=== PATIENT | male | born 1950 | race Caucasian/White ===

== ENCOUNTER → 2016-08-08 13:03 | Outpatient (CLI) | payer MEDICARE, OTHER ==
[2015-03-22 09:19] VITALS: BMI 30.8
== END | disposition home or self-care (01) ==
LOC: D.CT 08-07 11:00
DX: I73.9 Peripheral vascular disease, unspecified (principal); M79.605 Pain in left leg; M79.604 Pain in right leg

== ENCOUNTER 2017-03-31 09:40 | Day surgery (SDC) | payer MEDICARE, OTHER ==
[~2017-03-31] VITALS: Ht 167.6 cm; Wt 89.4 kg
[~2017-03-31 09:40] MED LIST: BAYER CHEWABLE81 MG PO; GLUCOPHAGE1000 MG PO; HYDROCHLOROTH12.5 M1 PO; LANTUS INSULIN10 ML SC; LISINOPRIL10 MG PO; NEURONTIN 300300 MG PO; NEURONTIN600 MG PO; RESTORIL15 MG PO; TYLENOL W/CODEI1 TAB PO
[2017-03-31 10:38] VITALS: BP 137/71; Ht 167.6 cm; Wt 89.4 kg
[2017-03-31 11:05] LABS: BASOPHILS 0.7 % (0-2); EOSINOPHILS 2.4 % (0-7); HEMATOCRIT 41.7 % (42.0-54.0); HEMOGLOBIN 14.1 g/dL (13.5-17.5); LYMPHOCYTES 40.4 % (15-50); MCH 29.9 pg (26.0-34.0); MCHC 33.8 g/dL (31.0-37.0); MCV 88.5 fL (80.0-100.0); MEAN PLATELET VOLUME 12.9 fL (7.4-10.4); MONOCYTES 12.5 % (2-11); RBC 4.71 10x6/uL (4.20-6.10); RDW 13.8 % (11.5-14.5)
[2017-03-31 11:07] LABS: PLATELET COUNT 122 10x3/uL (130-400)
[2017-03-31 11:27] LABS: CALC OSMOLALITY 279 mosm/kg (275-300); CALCIUM 9.1 mg/dL (8.5-10.1); CARBON DIOXIDE 26.4 mmol/L (21.0-32.0); CHLORIDE - SERUM 106 mmol/L (98-107); CREATININE - SERUM 0.6 mg/dL (0.6-1.3); SODIUM 139 mmol/L (136-145); UREA NITROGEN 16 mg/dL (7-18); eGFR NON AFRICAN AMERICAN > 90 mL/min (90-120)
[2017-03-31 11:28] LABS: GLUCOSE 113 mg/dL (74-106)
--- NOTE | 2017-03-31 15:20 | NUR ---
OPA IN AIRWAY ON ADMIT
[2017-03-31] MEDS ORDERED: HYDROCODONE-APA1 TAB PO (15:22)
--- NOTE | 2017-03-31 19:55 | NUR ---
CALL PLACED TO DR LY WHO IS TUB OPERATOR FOR DR BURGOS ABOUT PATIENT'S INABILITY TO VOID POSTOP. ORDER RECEIVED FOR INDWELLING [place] CATH AND DR LY STATES FOR PATIENT TO RETURN TO OFFICE THURSDAY TO HAVE IT REMOVED. 16 POLISH [place] CATH INSERTED WITHOUT DIFFICULTY, IMMEDIATE RETURN OF PATRICA COLORED URINE IN BAG
--- NOTE | 2017-03-31 20:25 | NUR ---
PATIENT AMBULATING TO BATHROOM WITH SPOUSE, STATES NEEDS TO HAVE BOWEL MOVEMENT. INSTRUCTED PATIENT TO NOT STRAIN, STATES UNDERSTANDING
--- NOTE | 2017-03-31 20:45 | NUR ---
DISCHARGE INSTRUCTIONS REVIEWED WITH PATIENT AND SPOUSE. PATIENT AMBULATING AROUND ROOM WITHOUT UNSTEADINESS BUT EXHIBITS STIFFNESS AND ASKING FOR SPOUSE'S ASSISTANCE WITH WALKING DUE TO PAIN IN RIGHT GROIN. THIS NURSE DISCUSSED WITH PATIENT'S SPOUSE HIS ABILITY TO GO HOME AND ASKED SPOUSE IF SHE FEELS CERTAIN THEY CAN FUNCTION AT HOME, SPOUSE STATES "YES, ONCE I GET HIM THERE AND GET HIM IN HIS RECLINER, THERE'S A BATHROOM REALLY CLOSE AND I THINK WE'LL BE OK." PATIENT DISCHARGED HOME VIA WHEELCHAIR TO PRIVATE VEHICLE WITH SPOUSE. PATIENT TRANSFERS SELF FROM WHEELCHAIR TO TRUCK WITH MINIMAL ASSIST.
--- NOTE | 2017-04-03 08:01 | OP ---
PATIENT NAME: KOLE BRANNON MEDICAL RECORD: [id number] :50 LOCATION:D.OPS ADMISSION DATE: SURGEON: AYDEN BURGOS MD DATE OF OPERATION: 03/31/2017 PREOPERATIVE DIAGNOSES: 1. Recurrent umbilical hernia. 2. Right inguinal hernia. 3. Tobacco dependent syndrome. 4. Hypertension. 5. Diabetes mellitus. 6. History of cerebrovascular accident. POSTOPERATIVE DIAGNOSES: 1. Recurrent umbilical hernia. 2. Right inguinal hernia. 3. Tobacco dependent syndrome. 4. Hypertension. 5. Diabetes mellitus. 6. History of cerebrovascular accident. PROCEDURE: 1. Umbilical hernia repair without mesh. 2. Right inguinal hernia repair with medium PHS mesh. SURGEON: Ayden Burgos MD REPORT OF PROCEDURE: The patient's abdomen and right groin were prepped and draped in sterile fashion. The umbilical hernia was approached first. A semicircular incision was made on the inferior aspect of the umbilicus. Electrocautery was used to dissect through the subcutaneous tissues. We eventually came through the inflamed hernia sac and was able to find about a 1-cm wide hernia defect. There is fatty tissue present within it and this was all teased down carefully with blunt dissection. The fascial edges were all freed off and the hernia defect was closed transversely with interrupted 0 Prolenes times 4. The umbilicus was then tacked down with an interrupted 3-0 Vicryl and the subcutaneous tissues were reapproximated with interrupted 3-0 Vicryl and the skin was then closed with running subcutaneous 5-0 Monocryl and dressed appropriately. The patient's right groin was then approached. An oblique incision was made above the inguinal ligament. Electrocautery was used to dissect through the subcutaneous tissue down to the external oblique fascia. This fascia was opened up to the external ring using Metzenbaum scissors. The patient's spermatic cord was elevated and there is a large fluid containing hernia defect present, we eviscerated the patient's right testicle and eventually peeled the hernia defect off of the spermatic cord and the ilioinguinal nerve was found and high ligated. We then pushed this direct hernia sac back into the abdominal cavity and opened up the preperitoneal space of Retzius. A medium PHS mesh was inserted and sutured down on all 4 sides using interrupted 0 Vicryls. After we irrigated out the wound with normal saline, then the external oblique fascia was closed with running 2-0 Vicryl, Susan's was closed with interrupted 3-0 Vicryl, and the skin was closed with running subcutaneous 5-0 Monocryl. A total of 10 mL of 0.25% Marcaine with epinephrine was infused in the tissue surrounding the 2 incisions, and wounds were dressed appropriately. OPERATIVE REPORT [id number] KOLE BRANNON COMPLICATIONS: None. CONDITION: Stable. ANESTHESIA: General endotracheal and local. BLOOD LOSS: Minimal. TRANSINT:[id number] Voice Confirmation ID: [id number] DOCUMENT ID: [id number] AYDEN BURGOS MD at 0801 CC: [place] DO [id number] DICTATION DATE: 03/31/17 1528 SECURITY FLEX OFFICER: 03/31/17 1757 [facility] 03/31/17 [address] [place] [address]
== END 2017-03-31 20:45 | disposition home or self-care (01) ==
LOC: D.OPS 09:40 → D.PAN 11:25 → D.OPS 12:00 → D.PAN 12:00 → D.OPS 15:00 → D.PAN 04-02 09:15
PROVIDERS: Surgery
DX: K42.9 Umbilical hernia without obstruction or gangrene (principal); K40.90 Unilateral inguinal hernia, without obstruction or gangrene, not specified as recurrent; F17.200 Nicotine dependence, unspecified, uncomplicated; I10 Essential (primary) hypertension; E11.9 Type 2 diabetes mellitus without complications; Z86.73 Personal history of transient ischemic attack (TIA), and cerebral infarction without residual deficits; Z01.812 Encounter for preprocedural laboratory examination

== ENCOUNTER → 2017-09-16 09:39 | Outpatient (CLI) | payer MEDICARE, OTHER ==
[2017-03-31 10:38] VITALS: BMI 31.8
[~2017-09-16 09:39] MED LIST changes: +HYDROCODONE-APA1 TAB PO
== END | disposition home or self-care (01) ==
LOC: D.US 09-15 13:00 → D.CT 09-15 15:30 → D.US 09:39
DX: G45.9 Transient cerebral ischemic attack, unspecified (principal)

== ENCOUNTER → 2017-10-29 15:30 | Outpatient (CLI) | payer MEDICARE, OTHER ==
[2017-03-31 10:38] VITALS: BMI 31.8
[~2017-10-29 15:30] MED LIST changes: +ALDACTONE100 MG PO; +CHRONULAC30 ML PO; +FUROSEMIDE40 MG PO; +TRAZODONE HCL150 MG PO; +XIFAXAN200 MG PO
== END | disposition home or self-care (01) ==
LOC: D.CT 15:00 → D.MRI 15:30 → D.CT 15:30 → D.MRI 16:00 → D.CT 16:30
DX: R10.31 Right lower quadrant pain (principal)

== ENCOUNTER 2017-11-12 10:11 | Outpatient (CLI) | payer MEDICARE, OTHER ==
[~2017-11-12] VITALS: Ht 167.6 cm; Wt 88.2 kg
[~2017-11-12 10:11] MED LIST changes: -ALDACTONE100 MG PO; -CHRONULAC30 ML PO; -FUROSEMIDE40 MG PO; -TRAZODONE HCL150 MG PO; -XIFAXAN200 MG PO
[2017-11-12 10:32] LABS: HEMATOCRIT 40.8 % (42.0-54.0); HEMOGLOBIN 13.5 g/dL (13.5-17.5); MCH 28.9 pg (26.0-34.0); MCHC 33.1 g/dL (31.0-37.0); MCV 87.4 fL (80.0-100.0); MEAN PLATELET VOLUME 9.9 fL (7.4-10.4); RBC 4.67 10x6/uL (4.20-6.10); RDW 14.1 % (11.5-14.5); WBC 2.6 10x3/uL (4.8-10.8)
[2017-11-12 10:49] LABS: APTT 29.7 SECONDS (22.8-39.4); INR 1.27 (0.85-1.17); PROTIME 15.5 SECONDS (11.6-15.0)
[2017-11-12 10:51] LABS: PLATELET COUNT 62 10x3/uL (130-400)
[2017-11-12 10:55] LABS: ALBUMIN 3.3 g/dL (3.4-5.0); CALC OSMOLALITY 286 mosm/kg (275-300); CALCIUM 8.5 mg/dL (8.5-10.1); CARBON DIOXIDE 30.7 mmol/L (21.0-32.0); CHLORIDE - SERUM 106 mmol/L (98-107); CREATININE - SERUM 0.8 mg/dL (0.6-1.3); GLUCOSE 113 mg/dL (74-106); POTASSIUM - SERUM 4.2 mmol/L (3.5-5.1); SODIUM 143 mmol/L (136-145); UREA NITROGEN 14 mg/dL (7-18); eGFR NON AFRICAN AMERICAN > 90 mL/min (90-120)
[2017-11-12 11:22] LABS: EOSINOPHILS 2 % (0-7); LYMPHOCYTES 36 % (15-50); MONOCYTES 11 % (2-11); NEUTROPHILS 50 % (40-80); PLATELET ESTIMATE DECREASED
[2017-11-12 12:05] VITALS: Ht 167.6 cm; Wt 88.2 kg
== END 2017-11-12 17:15 | disposition home or self-care (01) ==
LOC: D.SP 10:11 → D.CT 10:11 → D.SP 17:15
PROVIDERS: Radiology Vascular & Interventional Radiology
DX: K74.60 Unspecified cirrhosis of liver (principal)

== ENCOUNTER 2017-11-25 05:29 | Day surgery (SDC) | payer MEDICARE, OTHER ==
[~2017-11-25] VITALS: Ht 167.6 cm; Wt 88.2 kg
--- NOTE | ~2017-11-25 | OP ---
PATIENT NAME: KOLE BRANNON MEDICAL RECORD: [id number] :50 LOCATION:[facility] ADMISSION DATE: SURGEON: POONAM PACE DO DATE OF OPERATION: 11/25/2017 PROCEDURE: EGD with biopsies and variceal banding. INDICATIONS FOR PROCEDURE: Cirrhosis of the liver and surveillance of esophageal varices. SCOPE: Olympus video gastroscope. MEDICATIONS: Propofol 200 mg IV per anesthesia. ESTIMATED BLOOD LOSS: Minimal. COMPLICATIONS: None. FINDINGS: Informed consent was given. The patient was made comfortable with the above medication. After reaching an adequate level of sedation by slow IV push, the patient was placed on his left side. The endoscope was advanced under direct visualization through the mouth to the second portion of the duodenum. The upper third of the esophagus appeared normal. In the middle and distal thirds of the esophagus, there were large, grade III to grade IV esophageal varices, without bleeding stigmata. For prevention of bleeding, three bands were placed in the distal esophagus successfully. At the GE junction, there was evidence of LA class B reflux induced esophagitis and possible Daniels esophagus. No biopsies were taken on today's date due to the patient's elevated INR and low platelet level. The endoscope was advanced beyond the GE junction into the stomach and retroflexed to view the cardia, which appeared normal. In the entire stomach, there was diffuse portal hypertensive gastropathy and areas of erythema and friability consistent with gastritis. A single biopsy was taken from the incisura to submit for histopathology and to rule out the presence of H. pylori. The endoscope was advanced beyond the pylorus into the duodenum where the bulb and second portion of the duodenum appeared normal. The endoscope was then withdrawn from the patient. The patient tolerated the procedure well and there were no immediate complications. IMPRESSION: 1. Grade III to grade IV esophageal varices banded times 3. 2. 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 3. Portal hypertensive gastropathy. 4. Gastritis. PLAN AND RECOMMENDATIONS: 1. Discharge home when recovery parameters are met. 2. Follow up biopsy specimen results. 3. Full liquid diet for 24 hours followed by soft diet times 48 hours, then a regular diet. 4. Repeat EGD in 4 weeks for continued banding of varices as indicated until eradicated. 5. If not already taking a PPI, we will start 1 at 40 mg equivalent daily regarding possible Daniels's and the banded varices. TRANSINT:[id number] Voice Confirmation ID: [id number] DOCUMENT ID: [id number] OPERATIVE REPORT [id number] KOLE BRANNON NATHAN A DO at 0739 CC: [id number] DICTATION DATE: 11/25/17 0833 MANAGER HVAC: 11/25/17 1153 [facility] 11/25/17 [id number] [place] [address]
[2017-11-25 05:49] LABS: HEMATOCRIT 40.3 % (42.0-54.0); HEMOGLOBIN 13.5 g/dL (13.5-17.5); MCHC 33.5 g/dL (31.0-37.0); MCV 86.7 fL (80.0-100.0); MEAN PLATELET VOLUME 9.9 fL (7.4-10.4); RBC 4.65 10x6/uL (4.20-6.10); RDW 13.9 % (11.5-14.5); WBC 3.7 10x3/uL (4.8-10.8)
[2017-11-25] MEDS ORDERED: LISINOPRIL10 MG PO (06:26)
[2017-11-25] MEDS ORDERED: FUROSEMIDE40 MG PO (06:27)
[2017-11-25] MEDS ORDERED: ALDACTONE100 MG PO (06:27)
[2017-11-25 06:29] VITALS: BP 113/69; Ht 167.6 cm; Wt 88.2 kg
[2017-11-25 07:05] LABS: APTT 29.1 SECONDS (22.8-39.4); INR 1.27 (0.85-1.17); PROTIME 15.4 SECONDS (11.6-15.0)
== END 2017-11-25 09:45 | disposition home or self-care (01) ==
LOC: D.OPS 05:29
PROVIDERS: Anesthesiology; Internal Medicine Gastroenterology
DX: K74.60 Unspecified cirrhosis of liver (principal); I85.10 Secondary esophageal varices without bleeding; K21.0 Gastro-esophageal reflux disease with esophagitis; K76.6 Portal hypertension; K31.89 Other diseases of stomach and duodenum; K29.70 Gastritis, unspecified, without bleeding; Z01.812 Encounter for preprocedural laboratory examination

== ENCOUNTER 2017-12-16 06:37 | Outpatient (CLI) | payer MEDICARE, OTHER ==
[~2017-12-16] VITALS: Ht 167.6 cm; Wt 80.9 kg
[~2017-12-16 06:37] MED LIST changes: +ALDACTONE100 MG PO; +FUROSEMIDE40 MG PO
[2017-12-16 06:56] LABS: EOSINOPHILS 3.4 % (0-7); HEMATOCRIT 40.3 % (42.0-54.0); HEMOGLOBIN 13.6 g/dL (13.5-17.5); IMMATURE GRANULOCYTES 0.3 % (0-5); LYMPHOCYTES 36.9 % (15-50); MCH 28.9 pg (26.0-34.0); MCHC 33.7 g/dL (31.0-37.0); MCV 85.7 fL (80.0-100.0); MEAN PLATELET VOLUME 10.1 fL (7.4-10.4); MONOCYTES 10.9 % (2-11); NEUTROPHILS 47.5 % (40-80); PLATELET COUNT 62 10x3/uL (130-400); RDW 13.7 % (11.5-14.5); WBC 2.9 10x3/uL (4.8-10.8)
[2017-12-16 07:04] LABS: CALCIUM 8.5 mg/dL (8.5-10.1); CARBON DIOXIDE 29.9 mmol/L (21.0-32.0); CREATININE - SERUM 1.1 mg/dL (0.6-1.3); POTASSIUM - SERUM 3.9 mmol/L (3.5-5.1)
[2017-12-16 07:06] LABS: APTT 26.5 SECONDS (22.8-39.4); INR 1.19 (0.85-1.17); PROTIME 14.7 SECONDS (11.6-15.0)
[2017-12-16] MEDS ORDERED: TRAZODONE HCL150 MG PO (08:47)
[2017-12-16] MEDS ORDERED: XIFAXAN200 MG PO (08:52)
[2017-12-16] MEDS ORDERED: CHRONULAC30 ML PO (08:53)
[2017-12-16 09:12] VITALS: BP 103/67; Ht 167.6 cm; Wt 80.9 kg
== END 2017-12-16 14:38 | disposition home or self-care (01) ==
LOC: D.SP 06:37 → D.CT 09:00 → D.SP 14:38
PROVIDERS: Radiology Vascular & Interventional Radiology
DX: D69.6 Thrombocytopenia, unspecified (principal); Z01.812 Encounter for preprocedural laboratory examination

== ENCOUNTER 2018-01-20 05:35 | Day surgery (SDC) | payer MEDICARE, OTHER ==
[~2018-01-20] VITALS: Ht 167.6 cm; Wt 82.3 kg
--- NOTE | ~2018-01-20 | OP ---
PATIENT NAME: KOLE BRANNON MEDICAL RECORD: [id number] :50 LOCATION:[facility] ADMISSION DATE: SURGEON: POONAM PACE DO DATE OF OPERATION: 01/20/2018 PROCEDURE: EGD with esophageal variceal banding. INDICATION FOR PROCEDURE: Cirrhosis with history of esophageal varices and banding, last performed on 11/25/2017. SCOPE: Olympus video gastroscope. MEDICATIONS: Propofol 350 mg IV per anesthesia. ESTIMATED BLOOD LOSS: Minimal. COMPLICATIONS: None. FINDINGS: Informed consent was given. The patient was made comfortable with the above medication. After reaching an adequate level of sedation by slow IV push, the patient was placed on his left side. The endoscope was advanced under direct visualization through the mouth down to the second portion of the duodenum with ease. Throughout the entire esophagus, there were grade III to grade IV esophageal varices with some spot stigmata including warren red spots. There were no ulcers and no active bleeding. At the GE junction, there was evidence of LA class C reflux-induced esophagitis. The endoscope was advanced beyond the GE junction into the stomach where diffuse portal hypertensive gastropathy was displayed. There were no obvious gastric varices identified. In antrum and prepyloric regions, there were some reactive nodules with some ulcers present. There was no active bleeding. The endoscope was advanced beyond the pylorus into the duodenum where the bulb and second portion of the duodenum appeared normal. The endoscope was then withdrawn from the patient and the [employer] Speedband 7 was placed over the cap of the endoscope. The endoscope was advanced back into the esophagus where 4 bands were placed over the largest esophageal varices and where spot stigmata were located and visualized. The endoscope was then withdrawn from the patient. The patient tolerated the procedure well and there were no complications. IMPRESSION: 1. Grade III to IV esophageal varices, status post banding times 4. 2. LA class C reflux-induced esophagitis. 3. Diffuse portal hypertensive gastropathy. 4. Reactive nodules within the antrum of the stomach with gastric ulcers present. PLAN AND RECOMMENDATIONS: 1. Discharge home when recovery parameters are met. 2. Diet will need to be changed to a full-liquid diet times 48 hours followed by soft diet times 48 hours followed by regular diet. 3. Continue current medications. 4. Add omeprazole 40 mg daily or equivalent PPI until next endoscopy. 5. Repeat endoscopy in approximately 4 weeks for repeat banding as indicated. TRANSINT:[id number] Voice Confirmation ID: [id number] DOCUMENT ID: [id number] OPERATIVE REPORT [id number] KOLE BRANNON NATHAN A DO at 1312 CC: [id number] DICTATION DATE: 01/20/18827 HUMAN RESOURCES PROJECT COORDINATOR: 01/20/[address] [facility] 01/20/18 [id number] [place] [address]
[~2018-01-20 05:35] MED LIST changes: +CHRONULAC30 ML PO; +TRAZODONE HCL150 MG PO; +XIFAXAN200 MG PO
[2018-01-20 05:52] LABS: BASOPHILS 0.6 % (0-2); EOSINOPHILS 2.3 % (0-7); HEMATOCRIT 38.5 % (42.0-54.0); HEMOGLOBIN 13.1 g/dL (13.5-17.5); LYMPHOCYTES 39.3 % (15-50); MCH 29.5 pg (26.0-34.0); MCV 86.7 fL (80.0-100.0); MEAN PLATELET VOLUME 10.1 fL (7.4-10.4); MONOCYTES 8.4 % (2-11); NEUTROPHILS 49.4 % (40-80); PLATELET COUNT 60 10x3/uL (130-400); RBC 4.44 10x6/uL (4.20-6.10); RDW 14.5 % (11.5-14.5); WBC 3.1 10x3/uL (4.8-10.8)
[2018-01-20 06:07] LABS: ANION GAP 11.4 mmol/L (8-16); CARBON DIOXIDE 28.9 mmol/L (21.0-32.0); CREATININE - SERUM 1.1 mg/dL (0.6-1.3); POTASSIUM - SERUM 4.3 mmol/L (3.5-5.1)
[2018-01-20 06:14] LABS: INR 1.2 (0.85-1.17); PROTIME 14.7 SECONDS (11.6-15.0)
[2018-01-20 06:15] LABS: APTT 28.7 SECONDS (22.8-39.4)
[2018-01-20 06:16] VITALS: Ht 167.6 cm; Wt 82.3 kg
== END 2018-01-20 09:40 | disposition home or self-care (01) ==
LOC: D.OPS 05:35
PROVIDERS: Anesthesiology; Internal Medicine Gastroenterology
DX: K74.60 Unspecified cirrhosis of liver (principal); I85.10 Secondary esophageal varices without bleeding; K21.0 Gastro-esophageal reflux disease with esophagitis; K76.6 Portal hypertension; K31.89 Other diseases of stomach and duodenum; K25.9 Gastric ulcer, unspecified as acute or chronic, without hemorrhage or perforation; Z01.812 Encounter for preprocedural laboratory examination

== ENCOUNTER 2018-03-17 05:12 | Day surgery (SDC) | payer MEDICARE, OTHER ==
[~2018-03-17] VITALS: Ht 167.6 cm; Wt 82.7 kg
--- NOTE | ~2018-03-17 | OP ---
PATIENT NAME: KOLE BRANNON MEDICAL RECORD: [id number] :50 LOCATION:D.OPS ADMISSION DATE: SURGEON: POONAM PACE DO DATE OF OPERATION: 03/17/2018 PROCEDURE: Colonoscopy with polypectomy. INDICATIONS FOR PROCEDURE: Screening for colorectal cancer. SCOPE: Olympus video pediatric colonoscope. MEDICATIONS: Propofol 600 mg IV per anesthesia. WITHDRAWAL TIME: 19 minutes. ESTIMATED BLOOD LOSS: Minimal. COMPLICATIONS: None. FINDINGS: Informed consent was given. The patient was made comfortable with the above medication. After reaching an adequate level of sedation by slow IV push, the patient was placed on his left side. A digital rectal examination was performed and was normal. The endoscope was then advanced under direct visualization through the rectum to the cecum, confirmed by the presence of the appendiceal orifice and ileocecal valve. The endoscope was slowly withdrawn. Mucosa was carefully examined. The prep quality was good. There were multiple polyps visualized on today's examination. They were all benign-appearing and sessile. They ranged in size from 2-4 mm in diameter. One was located in the ascending colon, one was located in the transverse colon, one was located in the sigmoid colon, and 4 were located in the rectum. All of these polyps were removed using hot forceps. Retroflexion was performed in the rectum with visualization of grade II internal hemorrhoids without active bleeding. The endoscope was then withdrawn from the patient. The patient tolerated the procedure well and there were no complications. IMPRESSION: 1. Multiple polyps as described above, removed using hot forceps. 2. Grade II internal hemorrhoids without bleeding. PLAN AND RECOMMENDATIONS: 1. Discharge home when recovery parameters are met. 2. Follow up biopsy specimen results. 3. High fiber diet. 4. Continue current medications. 5. Recall colonoscopy in 3 years. TRANSINT:[id number] Voice Confirmation ID: [id number] DOCUMENT ID: [id number] OPERATIVE REPORT [id number] KOLE BRANNON POONAM PACE DO at 0732 CC: [id number] DICTATION DATE: 03/17/18 08 PRIVATE PILOT: 03/17/18 1143 [facility] 03/17/18 [place] [address]
[2018-03-17 05:27] LABS: HEMATOCRIT 38.7 % (42.0-54.0); HEMOGLOBIN 13.1 g/dL (13.5-17.5); MCHC 33.9 g/dL (31.0-37.0); MCV 88.8 fL (80.0-100.0); RBC 4.36 10x6/uL (4.20-6.10); RDW 13.6 % (11.5-14.5); WBC 3.9 10x3/uL (4.8-10.8)
[2018-03-17 05:35] LABS: CALC OSMOLALITY 280 mosm/kg (275-300); CALCIUM 8.7 mg/dL (8.5-10.1); CARBON DIOXIDE 27.9 mmol/L (21.0-32.0); CHLORIDE - SERUM 102 mmol/L (98-107); SODIUM 140 mmol/L (136-145); UREA NITROGEN 15 mg/dL (7-18); eGFR NON AFRICAN AMERICAN 79 mL/min (90-120)
[2018-03-17 05:40] LABS: GLUCOSE 111 mg/dL (74-106)
[2018-03-17 06:21] VITALS: BP 134/72; Ht 167.6 cm; Wt 82.7 kg
== END 2018-03-17 09:05 | disposition home or self-care (01) ==
LOC: D.OPS 05:12
PROVIDERS: Anesthesiology
DX: D12.2 Benign neoplasm of ascending colon (principal); D12.5 Benign neoplasm of sigmoid colon; D12.3 Benign neoplasm of transverse colon; K62.1 Rectal polyp; K64.1 Second degree hemorrhoids

== ENCOUNTER 2018-05-03 08:47 | Day surgery (SDC) | payer MEDICARE, OTHER ==
[~2018-05-03] VITALS: Ht 167.6 cm; Wt 80.5 kg
[2018-05-03 09:18] LABS: BASOPHILS 0.2 % (0-2); EOSINOPHILS 1.6 % (0-7); HEMATOCRIT 39.7 % (42.0-54.0); HEMOGLOBIN 13.7 g/dL (13.5-17.5); IMMATURE GRANULOCYTES 0.2 % (0-5); MCH 30.3 pg (26.0-34.0); MCHC 34.5 g/dL (31.0-37.0); MCV 87.8 fL (80.0-100.0); MEAN PLATELET VOLUME 10.7 fL (7.4-10.4); MONOCYTES 8.3 % (2-11); NEUTROPHILS 75.7 % (40-80); PLATELET COUNT 62 10x3/uL (130-400); RBC 4.52 10x6/uL (4.20-6.10); RDW 13.4 % (11.5-14.5); WBC 8.9 10x3/uL (4.8-10.8)
[2018-05-03 09:31] LABS: ALBUMIN 3.5 g/dL (3.4-5.0); ANION GAP 14.2 mmol/L (8-16); BILIRUBIN - TOTAL 2.57 mg/dL (0.2-1.3); CALCIUM 8.7 mg/dL (8.5-10.1); CREATININE - SERUM 1.4 mg/dL (0.6-1.3); POTASSIUM - SERUM 4.2 mmol/L (3.5-5.1); PROTEIN - SERUM 7.5 g/dL (6.4-8.2)
[2018-05-03 09:41] VITALS: BP 104/54; Ht 167.6 cm; Wt 80.5 kg
--- NOTE | 2018-05-03 09:50 | NUR ---
IV STARTED WITH; 22G ANGIOCATH IN RIGHT ARM
[2018-05-03 10:37] LABS: PLATELET ESTIMATE DECREASED
[2018-05-03 10:42] LABS: INR 1.14 (0.85-1.17); PROTIME 14.1 SECONDS (11.6-15.0)
--- NOTE | 2018-05-05 13:50 | OP ---
PATIENT NAME: KOLE BRANNON MEDICAL RECORD: [id number] :50 LOCATION:[facility] ADMISSION DATE: SURGEON: POONAM PACE DO DATE OF OPERATION: 05/03/2018 PROCEDURE: EGD with variceal band ligation and biopsies. INDICATION FOR PROCEDURE: History of cirrhosis with esophageal varices, requiring banding in the past. Last EGD with banding was performed on 01/20/2018. SCOPE: Olympus video gastroscope. MEDICATIONS: Propofol 250 mg IV per anesthesia. ESTIMATED BLOOD LOSS: Minimal. COMPLICATIONS: None. FINDINGS: Informed consent was given. The patient was made comfortable with the above medication. After reaching an adequate level of sedation by slow IV push, the patient was placed on his left side. The endoscope was advanced under direct visualization through the mouth to the second portion of the duodenum with ease. In the esophagus, there was evidence of grade II to grade III esophageal varices. Varices were more severe in the proximal to middle thirds of the esophagus as opposed to the distal third. There were some previous banding scars present. There were few warren red spots and red john signs present on varices. After the rest of the examination was performed, a Speedbander was placed over the endoscope and 3 bands were placed over the most prominent varices present. At the GE junction, there was evidence of LA class C, reflux-induced esophagitis with possible Daniels's mucosa. Two cold forceps biopsies were taken to submit for histology to rule out the presence of Daniels's. The endoscope was advanced beyond the GE junction into the stomach and retroflexed to view the cardia and fundus. There were no obvious gastric varices present. Throughout the stomach, there was evidence of pqmruofw-wj-jrghid portal hypertensive gastropathy. There was no active bleeding. In the antrum, there were some reactive nodules which were present on previous examinations. No biopsies were taken of the antrum on today's examination. The endoscope was advanced beyond the pylorus into the duodenum, where there was evidence of mild portal hypertensive duodenopathy but was otherwise normal. The endoscope was withdrawn from the patient after banding was completed. The patient tolerated the procedure well. There were no complications. IMPRESSION: 1. Grade III esophageal varices, banded times 3. 2. LA class C, reflux-induced esophagitis with possible Daniels's mucosa. Biopsies taken. 3. Ahyupzon-kv-cqmtbl portal hypertensive gastropathy and mild portal hypertensive duodenopathy. 4. Reactive nodules in the antrum, which were not biopsied on today's examination, but had been biopsied in the past. PLAN AND RECOMMENDATIONS: 1. Discharge home when recovery parameters are met. OPERATIVE REPORT [id number] KOLE BRANNON 2. Liquid diet times 48 hours followed by soft diet times 48 hours and then regular diet. 3. Continue current medications. 4. Maintain appointments with can dragger as scheduled. 5. Recommend repeat EGD in 3-4 weeks with banding as indicated. TRANSINT:[id number] Voice Confirmation ID: [id number] DOCUMENT ID: [id number] POONAM PACE DO at 1350 CC: [id number] DICTATION DATE: 05/03/18 1045 MUSEUM DIRECTOR: 05/03/18 1159 [facility] 05/03/18 [facility] [address] [place] [address]
== END 2018-05-03 12:16 | disposition home or self-care (01) ==
LOC: D.OPS 08:47
PROVIDERS: Anesthesiology; Internal Medicine Gastroenterology
DX: I85.10 Secondary esophageal varices without bleeding (principal); K74.60 Unspecified cirrhosis of liver; K21.0 Gastro-esophageal reflux disease with esophagitis; K76.6 Portal hypertension; K31.89 Other diseases of stomach and duodenum; Z01.812 Encounter for preprocedural laboratory examination

== ENCOUNTER → 2018-05-26 13:59 | Outpatient (CLI) | payer MEDICARE, OTHER ==
[2018-05-03 09:41] VITALS: BMI 28.6
== END | disposition home or self-care (01) ==
LOC: D.CT 05-19 09:30
DX: R10.30 Lower abdominal pain, unspecified (principal)

== ENCOUNTER 2018-06-16 09:47 | Day surgery (SDC) | payer MEDICARE, OTHER ==
[~2018-06-16] VITALS: Ht 167.6 cm; Wt 83.2 kg
--- NOTE | ~2018-06-16 | OP ---
PATIENT NAME: KOLE BRANNON MEDICAL RECORD: [id number] :50 LOCATION:[facility] ADMISSION DATE: SURGEON: POONAM PACE DO DATE OF OPERATION: 06/16/2018 PROCEDURE: EGD with band ligation. INDICATIONS FOR PROCEDURE: Esophageal varices surveillance. His last EGD was on 05/03/2018 and 3 bands were placed at that time. SCOPE: Olympus video gastroscope. MEDICATIONS: Propofol 180 mg IV per anesthesia. ESTIMATED BLOOD LOSS: Minimal. COMPLICATIONS: None. FINDINGS: Informed consent was given. The patient was made comfortable with the above medication. After reaching an adequate level of sedation by slow IV push, the patient was placed on his left side. The endoscope was advanced under direct visualization through the mouth to the second portion of the duodenum with ease. In the esophagus, there was evidence of grade II to grade III esophageal varices. As they were in the past, varices were more severe in the proximal to middle thirds of the esophagus. There were some varices in the distal esophagus. Previous banding scars were present. There were a few warren red spots and red ori present on the varices today. After the remainder of the examination was performed, a speed smoking tobacco packing machine hand was placed over the endoscope and 3 bands were placed over the most prominent varices present. At the GE junction, there was evidence of LA class C, reflux-induced esophagitis. The endoscope was advanced beyond the GE junction, the stomach and retroflexed to view the cardia and fundus. There were no obvious gastric varices present. Throughout the stomach, there was jafidxgx-dm-vdjdku portal hypertensive gastropathy without active bleeding. In the antrum, there were a few reactive nodules/polyps, which were present on previous examinations. These have been biopsied in the past and will have been found to be benign, so no biopsies were performed today. The endoscope was advanced beyond the pylorus into the duodenum where there was evidence of mild portal hypertensive duodenopathy. The endoscope was then withdrawn from the patient. The patient tolerated the procedure well and there were no complications. IMPRESSION: 1. Grade II to grade III esophageal varices banded times 3. 2. LA class C, reflux-induced esophagitis. 3. Uunmetbf-vp-ytkhec portal hypertensive gastropathy and duodenopathy. 4. Reactive nodules/polyps in the antrum, which were not biopsied on today's examination. These have been biopsied in the past and had been found to be benign. TRANSINT:[id number] Voice Confirmation ID: [id number] DOCUMENT ID: [id number] OPERATIVE REPORT [id number] KOLE BRANNONPOONAM Victoria NUGENT CC: [id number] DICTATION DATE: 06/16/18 1232 DRYING MACHINE OPERATOR: 06/16/18 1256 [facility] [address] [place] [address]
[2018-06-16 10:22] LABS: HEMATOCRIT 39.6 % (42.0-54.0); HEMOGLOBIN 13.6 g/dL (13.5-17.5); MCH 30.3 pg (26.0-34.0); MCHC 34.3 g/dL (31.0-37.0); MCV 88.2 fL (80.0-100.0); MEAN PLATELET VOLUME 10.8 fL (7.4-10.4); RBC 4.49 10x6/uL (4.20-6.10); RDW 13.7 % (11.5-14.5); WBC 3.6 10x3/uL (4.8-10.8)
[2018-06-16 10:25] LABS: APTT 28.2 SECONDS (22.8-39.4); INR 1.23 (0.85-1.17)
[2018-06-16] MEDS ORDERED: FLAGYL500 MG PO (10:29)
[2018-06-16 10:34] LABS: ALBUMIN 3.8 g/dL (3.4-5.0); ANION GAP 13.3 mmol/L (8-16); BILIRUBIN - TOTAL 1.26 mg/dL (0.2-1.3); CALCIUM 8.8 mg/dL (8.5-10.1); CARBON DIOXIDE 25.4 mmol/L (21.0-32.0); CREATININE - SERUM 1.3 mg/dL (0.6-1.3); POTASSIUM - SERUM 5.7 mmol/L (3.5-5.1); PROTEIN - SERUM 7.2 g/dL (6.4-8.2)
[2018-06-16 10:42] VITALS: BP 112/70; Ht 167.6 cm; Wt 83.2 kg
--- NOTE | 2018-06-16 13:02 | NUR ---
DC INSTRUCTIONS GIVEN TO PT/FAMILY. STATE UNDERSTANDING. DC'D IV CATH FULLY INTACT
--- NOTE | 2018-06-16 13:12 | NUR ---
PT LEFT UNIT VIA WC AT 1309
== END 2018-06-16 13:09 | disposition home or self-care (01) ==
LOC: D.OPS 09:47
PROVIDERS: Anesthesiology; ATTEND Internal Medicine Gastroenterology
DX: I85.00 Esophageal varices without bleeding (principal); K21.0 Gastro-esophageal reflux disease with esophagitis; K76.6 Portal hypertension; K31.89 Other diseases of stomach and duodenum; K31.7 Polyp of stomach and duodenum; Z01.812 Encounter for preprocedural laboratory examination

== ENCOUNTER 2018-07-26 12:14 | Day surgery (SDC) | payer MEDICARE, OTHER ==
[~2018-07-26] VITALS: Ht 165.1 cm; Wt 82.7 kg
[~2018-07-26 12:14] MED LIST changes: +FLAGYL500 MG PO
[2018-07-26 12:45] LABS: BASOPHILS 0.3 % (0-2); EOSINOPHILS 2.9 % (0-7); HEMATOCRIT 37.5 % (42.0-54.0); HEMOGLOBIN 12.9 g/dL (13.5-17.5); IMMATURE GRANULOCYTES 0.3 % (0-5); LYMPHOCYTES 29.4 % (15-50); MCH 30.9 pg (26.0-34.0); MCHC 34.4 g/dL (31.0-37.0); MCV 89.7 fL (80.0-100.0); MONOCYTES 12.5 % (2-11); NEUTROPHILS 54.6 % (40-80); RBC 4.18 10x6/uL (4.20-6.10); RDW 13.3 % (11.5-14.5); WBC 3.8 10x3/uL (4.8-10.8)
[2018-07-26 12:55] LABS: ANION GAP 11.5 mmol/L (8-16); CALCIUM 8.8 mg/dL (8.5-10.1); CARBON DIOXIDE 28.3 mmol/L (21.0-32.0); CREATININE - SERUM 1.6 mg/dL (0.6-1.3); POTASSIUM - SERUM 4.8 mmol/L (3.5-5.1)
[2018-07-26 12:59] LABS: PLATELET COUNT 48 10x3/uL (130-400)
--- NOTE | 2018-07-26 13:05 | NUR ---
DR. PACE WAS NOTIFIED OF PT'S PLT COUNT OF 48. HE WANTS TO PROCEED W/ PROCEDURE.
[2018-07-26] MEDS ORDERED: GLYBURIDE2.5 MG PO (13:16)
[2018-07-26] MEDS ORDERED: CHRONULAC30 ML PO (13:17)
[2018-07-26] MEDS ORDERED: PROTONIX40 MG PO (13:17)
[2018-07-26 13:20] VITALS: Ht 165.1 cm; Wt 82.7 kg
[2018-07-26 13:28] LABS: PLATELET ESTIMATE DECREASED
--- NOTE | 2018-07-26 14:27 | NUR ---
1428 DR. KATELYNN WHITTEN.
--- NOTE | 2018-07-26 14:41 | NUR ---
1440 [place] DIET SERVED. ORDERS FAXED TO OFFICE FOR FOLLOW UP EGD TO BE SCHEDULED.
--- NOTE | 2018-07-28 18:24 | OP ---
PATIENT NAME: KOLE BRANNON MEDICAL RECORD: [id number] :50 LOCATION:[facility] ADMISSION DATE: SURGEON: POONAM PACE DO DATE OF OPERATION: 07/26/2018 PROCEDURE: EGD with band ligation. INDICATIONS FOR PROCEDURE: Surveillance of esophageal varices. The patient's last upper endoscopy was on 06/16/2018 where 3 bands were placed. SCOPE: Olympus video gastroscope. MEDICATIONS: Propofol 160 mg IV per anesthesia. ESTIMATED BLOOD LOSS: Minimal. COMPLICATIONS: None. FINDINGS: Informed consent was given. The patient was made comfortable with the above medication. After reaching an adequate level of sedation by slow IV push, the patient was placed on his left side. The endoscope was advanced under direct visualization through the mouth to the second portion of the duodenum. In the esophagus, there was evidence of grade II to grade III esophageal varices. As noted in the past, the varices were most severe in the proximal to middle thirds of the esophagus with relative sparing of the mid esophagus and again worsening of the varices in the distal esophagus. There were a few red welts present on the varices today. At the GE junction, there was evidence of LA class C reflux-induced esophagitis. There was moderately severe portal hypertensive gastropathy and duodenopathy on this examination. There were some reactive nodules present in the antrum, which were not biopsied today. These have been biopsied in the past and were found to be reactive and benign. Upon retroflexion in the stomach, there were no obvious gastric varices present. The endoscope was withdrawn from the patient and fitted with a [employer] speed manager gas. Then the scope was then advanced back into the esophagus and 2 bands were placed over the largest varices successfully. The endoscope was then withdrawn from the patient. The patient tolerated the procedure well and there were no complications. IMPRESSIONS: 1. Grade II to grade III esophageal varices. Two bands were placed successfully today. 2. LA class C, reflux-induced esophagitis. 3. Moderately severe portal hypertensive gastropathy and duodenopathy. 4. Reactive nodules in the antrum. These were not biopsied today as they had been biopsied in the past and were found to be benign. PLAN AND RECOMMENDATIONS: 1. Discharge home when recovery parameters were met. 2. Full liquid diet times 48 hours followed by soft diet times 48 hours, then a regular diet. 3. Continue current medications. 4. Follow up in GI clinic as scheduled. 5. Repeat EGD in 8-12 weeks for continued banding as indicated. Prior to next procedure, the patient will need a CBC in 1 week before the examination to determine if he will need Doptelet to help raise his platelet levels prior to OPERATIVE REPORT [id number] KOLE BRANNON endoscopy. TRANSINT:[id number] Voice Confirmation ID: [id number] DOCUMENT ID: [id number] POONAM PACE DO at 1824 CC: [id number] DICTATION DATE: 07/26/18 1416 VARNISH MAKER: 07/26/18 1438 [facility] 07/26/18 [id number] [place] [address]
== END 2018-07-26 15:10 | disposition home or self-care (01) ==
LOC: D.OPS 12:14
PROVIDERS: Anesthesiology; ATTEND Internal Medicine Gastroenterology
DX: I85.00 Esophageal varices without bleeding (principal); K74.60 Unspecified cirrhosis of liver

== ENCOUNTER 2018-09-09 19:34 | Inpatient (IN) | payer MEDICARE, OTHER ==
[~2018-09-09] VITALS: Ht 165.1 cm; Wt 83.5 kg
[~2018-09-09 19:34] MED LIST changes: +GLYBURIDE2.5 MG PO; +PROTONIX40 MG PO
[2018-09-09 20:06] LABS: BASOPHILS 0.6 % (0-2); EOSINOPHILS 2.2 % (0-7); HEMATOCRIT 40.1 % (42.0-54.0); HEMOGLOBIN 13.9 g/dL (13.5-17.5); LYMPHOCYTES 32.6 % (15-50); MCH 30.7 pg (26.0-34.0); MCHC 34.7 g/dL (31.0-37.0); MCV 88.5 fL (80.0-100.0); MEAN PLATELET VOLUME 10.2 fL (7.4-10.4); MONOCYTES 8.8 % (2-11); NEUTROPHILS 55.8 % (40-80); RBC 4.53 10x6/uL (4.20-6.10); RDW 13.5 % (11.5-14.5); WBC 3.2 10x3/uL (4.8-10.8)
[2018-09-09 20:16] LABS: PLATELET COUNT 43 10x3/uL (130-400)
[2018-09-09 20:19] LABS: ALBUMIN 3.5 g/dL (3.4-5.0); ALKALINE PHOSPHATASE 217 U/L (46-116); ALT (SGPT) 70 U/L (10-68); BILIRUBIN - TOTAL 2.24 mg/dL (0.2-1.3); CALC OSMOLALITY 288 mosm/kg (275-300); CALCIUM 9.3 mg/dL (8.5-10.1); CHLORIDE - SERUM 106 mmol/L (98-107); POTASSIUM - SERUM 4.5 mmol/L (3.5-5.1); PROTEIN - SERUM 6.8 g/dL (6.4-8.2); SODIUM 141 mmol/L (136-145); UREA NITROGEN 22 mg/dL (7-18); eGFR NON AFRICAN AMERICAN 79 mL/min (90-120)
[2018-09-09 20:20] LABS: GLUCOSE 185 mg/dL (74-106)
[2018-09-09 20:27] LABS: PRO BNP 120 pg/mL (0-125)
[2018-09-09 20:29] LABS: PLATELET ESTIMATE DECREASED
--- NOTE | 2018-09-09 21:31 | NUR ---
PT INCREASINGLY CONFUSED AT PRESENT. CALMED PT AND INFORMED PT OF PLAN. PT RELUCTANTLY AGREED TO STAY. CALM AT PRESENT. FAMILY AT BEDSIDE
--- NOTE | 2018-09-09 22:10 | NUR ---
PT ARRIVED ON UNIT VIA STRETCHER, HOOKED TO MONITORS, PT IS ALERT AND ORIENTED, ON RA WITH 97% O2 SAT, ALL PPP, VSS, CALL LIGHT IN REACH
--- NOTE | 2018-09-09 22:10 | NUR ---
PT ARRIVED ON UNIT VIA STRETCHER, HOOKED TO MONITORS, PT CONFUSED AT THIS TIME, REORIENTS EASILY, ON RA WITH 97% O2 SAT. ALL PPP, VSS, CALL LIGHT IN REACH
[2018-09-09 22:13] VITALS: BP 137/75; BMI 30.8
[2018-09-09 22:30] VITALS: BP 139/83
[2018-09-09 23:00] VITALS: BP 138/87
[2018-09-10] VITALS (24 sets, daily range): BP systolic 103–139; BP diastolic 47–85; Ht 165.1 cm; Wt 83.5 kg
--- NOTE | 2018-09-10 01:25 | NUR ---
PT UPTO BSC, LG BM NOTED AT THIS TIME
--- NOTE | 2018-09-10 03:25 | NUR ---
REASSESSMENT COMPLETE, NO CHANGES NOTED, PT RESTING AT THIS TIME, VSS, CALL LIGHT IN REACH
[2018-09-10 03:29] LABS: BASOPHILS 0.6 % (0-2); EOSINOPHILS 1.4 % (0-7); HEMATOCRIT 39.1 % (42.0-54.0); HEMOGLOBIN 13.4 g/dL (13.5-17.5); LYMPHOCYTES 24.4 % (15-50); MCH 30.1 pg (26.0-34.0); MCHC 34.3 g/dL (31.0-37.0); MCV 87.9 fL (80.0-100.0); MEAN PLATELET VOLUME 10.6 fL (7.4-10.4); MONOCYTES 12.9 % (2-11); NEUTROPHILS 60.7 % (40-80); RBC 4.45 10x6/uL (4.20-6.10); RDW 13.5 % (11.5-14.5); WBC 3.5 10x3/uL (4.8-10.8)
[2018-09-10 03:39] LABS: PLATELET COUNT 43 10x3/uL (130-400)
--- NOTE | 2018-09-10 05:25 | NUR ---
AT BEDSIDE, UPDATE GIVEN
[2018-09-10 06:58] LABS: ALBUMIN 3.3 g/dL (3.4-5.0); ALKALINE PHOSPHATASE 199 U/L (46-116); ALT (SGPT) 65 U/L (10-68); BILIRUBIN - TOTAL 2.28 mg/dL (0.2-1.3); CALC OSMOLALITY 287 mosm/kg (275-300); CALCIUM 8.9 mg/dL (8.5-10.1); CARBON DIOXIDE 24.1 mmol/L (21.0-32.0); CHLORIDE - SERUM 107 mmol/L (98-107); CREATININE - SERUM 0.9 mg/dL (0.6-1.3); GLUCOSE 166 mg/dL (74-106); MAGNESIUM - SERUM 1.9 mg/dL (1.8-2.4); PHOSPHOROUS 3.1 mg/dL (2.5-4.9); POTASSIUM - SERUM 4.2 mmol/L (3.5-5.1); PROTEIN - SERUM 6.3 g/dL (6.4-8.2); SODIUM 141 mmol/L (136-145); UREA NITROGEN 20 mg/dL (7-18); eGFR NON AFRICAN AMERICAN 89 mL/min (90-120)
[2018-09-10 09:21] LABS: % SATURATION 32 % (15-55); IRON 88 ug/dl (35-150); TOTAL IRON BIND CAPACITY 273 ug/dl (260-445); UNSAT IRON BIND CAPACITY 185 ug/dl (150-375)
[2018-09-10 09:26] LABS: APTT 28.6 SECONDS (22.8-39.4); INR 1.23 (0.85-1.17); PROTIME 14.9 SECONDS (11.6-15.0)
[2018-09-10 14:36] LABS: APPEARANCE HAZY (CLEAR); COLOR DK YELLOW (YELLOW)
[2018-09-10 14:37] LABS: BACTERIA MODERATE /hpf (NONE SEEN); BILIRUBIN NEGATIVE (NEGATIVE); EPITHELIAL CELLS 0-5 /hpf (0-5); GLUCOSE NEGATIVE (NEGATIVE); KETONE SMALL mg/dL (NEGATIVE); MUCUS >1+ /lpf (NONE SEEN); NITRITE NEGATIVE (NEGATIVE); PROTEIN NEGATIVE (NEGATIVE); RED CELLS - URINE 0-5 /hpf (0-5); SPERMATOZOA RARE /hpf (NONE SEEN); WHITE CELLS - URINE 0-5 /hpf (0-5)
--- NOTE | 2018-09-10 19:15 | NUR ---
REPORT RECEIVED INITIAL ASSESSMENT COMPLETE. PT AWAKE ALERT AND ORIENTED SITTING UP IN BED ON ROOM AIR O2 SAT 98% RESP EVEN AND NONLABORED BREATH SOUNDS CLEAR. ABD DISTENDED NONTENDER BOWEL SOUNDS ACTIVE, PT STATES HE HAS BEEN HAVING DIARRHEA ABLE TO GET UP TO BSC WITHOUT ASSISTANCE. URINE YELLOW ALSO BEDSIDE COMMODE. CM INTACT ALARMS ON AND AUDIBLE. LEFT AC PIV PATIENT. BED LOW POSIITON SIDE RAILS UP TIMES 2. CALL LIGHT IN REACH PT DENIES NEEDS AT THIS ITME. PT JUST WANTS TO BE OUT OF ICU SO CAN STAY WITH HIM. CPOC
--- NOTE | 2018-09-10 19:40 | NUR ---
ANSWERED PTS CALL LIGHT HE HAD GOTTEN UP TO BSC AND NEEDED BP CUFF HOOKED BACK UP. PT HAD SMALL LIQUID BROWN STOOL.
--- NOTE | 2018-09-10 21:00 | NUR ---
FAMILY AT BEDSIDE FOR VISITATION. UPDATED AND QUESTIONS ANSWERED. PTS HAD JUST HELPED BACK TO BED AND HELPED WASH BACK AND BOTTOM AFTER BM LIQUID BROWN NO DISTRESS NEEDED CALL LIGHT IN REACH
--- NOTE | 2018-09-10 23:00 | NUR ---
REASSESSMENT MADE PT STATES "I JUST CANT GET COMFORTABLE IN THIS BED CANT SLEEP IM READY TO GO HOME AND GET OUT OF HERE AT LEAST SO MY CAN STAY WITH ME". INFORMED PT TO SPEAK WITH DOCTORS IN AM AND I WILL PASS ON IN REPORT VSS CPOC NO PAIN NO DISTRESS JUST NOT COMFORTABLE
[2018-09-11] VITALS (8 sets, daily range): BP systolic 115–148; BP diastolic 56–72
--- NOTE | 2018-09-11 01:00 | NUR ---
ANSWERED PTS CALL LIGHT B/P CUFF HAD SLIPPED DOWN AND EKG LEADS HAD COME OFF PT HAS HAIRY CHEST HE STATED IT WAS OK TO SHAVE A SMALL AREA FOR LEADS TO ATTACH WILL ATTEMPT THAT NOW
--- NOTE | 2018-09-11 01:15 | NUR ---
ANSWERED PTS CALL LIGHT THE VEHICLE MODIFICATION TECHNICIAN LEADS HAD COME LOOSE WHEN UP TO BSC. REPLACED LEADS AND B/P CUFF PT AGITATED THAT HE HAS TO DO THIS EVERYTIME HE GETS UP TO BATHROOM.
--- NOTE | 2018-09-11 03:00 | NUR ---
REASSESSMENT MADE NO CHANGES. PT AGITATED AND HAS NOT SLEPT CAN NOT GET COMFORTABLE WANTS OUT OF ICU. DENIES PAIN JUST GENERAL DISCORD WITH SITUATION
[2018-09-11 03:32] LABS: HEMATOCRIT 37.7 % (42.0-54.0); HEMOGLOBIN 12.8 g/dL (13.5-17.5); MCH 30.1 pg (26.0-34.0); MCV 88.7 fL (80.0-100.0); MEAN PLATELET VOLUME 10.4 fL (7.4-10.4); RBC 4.25 10x6/uL (4.20-6.10); RDW 13.6 % (11.5-14.5); WBC 2.7 10x3/uL (4.8-10.8)
[2018-09-11 03:36] LABS: PLATELET COUNT 42 10x3/uL (130-400)
--- NOTE | 2018-09-11 03:45 | NUR ---
ANSWERED PTS CALL LIGHT HE IS C/O HAVING TO KEEP GETTING "HOOKED UP TO THE MONITOR AND B/P CUFF EVERYTIME I HAVE TO GET UP TO PEE" INFORMED HE DID NOT HAVE TO GET UP TO TO URINATE GIVEN AND EDUCATED ON HOW TO USE URINAL IN BED. HE REFUSES STILL AGITATED. INFORMED IN ICU WE HAVE TO MONITOR VS AND PT HAS TO HAVE LEADS AND CUFF ON FOR PROTOCOLS.
[2018-09-11 03:49] LABS: ALBUMIN 3.2 g/dL (3.4-5.0); ALKALINE PHOSPHATASE 187 U/L (46-116); ALT (SGPT) 56 U/L (10-68); BILIRUBIN - TOTAL 1.73 mg/dL (0.2-1.3); CALC OSMOLALITY 287 mosm/kg (275-300); CALCIUM 8.7 mg/dL (8.5-10.1); CARBON DIOXIDE 25.7 mmol/L (21.0-32.0); CHLORIDE - SERUM 107 mmol/L (98-107); CREATININE - SERUM 0.9 mg/dL (0.6-1.3); GLUCOSE 154 mg/dL (74-106); PROTEIN - SERUM 6.4 g/dL (6.4-8.2); SODIUM 142 mmol/L (136-145); UREA NITROGEN 19 mg/dL (7-18); eGFR NON AFRICAN AMERICAN 89 mL/min (90-120)
[2018-09-11 04:22] LABS: EOSINOPHILS 3 % (0-7); LYMPHOCYTES 36 % (15-50); MONOCYTES 7 % (2-11); NEUTROPHILS 54 % (40-80); PLATELET ESTIMATE DECREASED; PLATELET MORPHOLOGY GIANT PLTS PRESENT
--- NOTE | 2018-09-11 05:30 | NUR ---
PTS AT BEDSIDE FOR VISITATION ASSISTING PT WITH BATH LINENS CHANGED AND HAIR WASHED WITH SHAMPOO CAP.
--- NOTE | 2018-09-11 06:00 | NUR ---
PT AND TALKING SHE IS HELPING WITH PT WHILE BACK HERE. HE JUST WANTS TO GO HOME OR AT LEAST GO TO ROOM ON FLOOR WHERE CAN STAY WITH HIM ALL THE TIME
[2018-09-11 06:12] LABS: FOLATE (FOLIC ACID) - SERUM 14.9 ng/mL (>3.0)
--- NOTE | 2018-09-11 10:08 | NUR ---
0700 IN BED TALKING TO SPOUSE NO C/O AT THIS TIME ASSESSMENT COMPLETE VOIDING WITHOUT DIFIFICULTY SMALL BM NOTED
--- NOTE | 2018-09-11 10:09 | NUR ---
0900 APPETITE GOOD VOID AND BM NOTED SPOUSE REMAINS AT BEDSIDE
--- NOTE | 2018-09-11 16:13 | NUR ---
1100 AT BEDSIDE TO ASSIST PATIENT VOICES NO COMPLAINTS
--- NOTE | 2018-09-11 16:14 | NUR ---
1300 APPETITE GOOD VOIDS AND HAS BM ON BSC WITH LITTLE ASSIST UP
--- NOTE | 2018-09-11 16:15 | NUR ---
1430 DISCHARGE ORDERS NOTED TO LTRANSPORT PT HOME WRITTEN AND VERBAL INSTRUCTION GIVEN VERBALIZED UNDERSTANDING
--- NOTE | 2018-09-11 16:17 | NUR ---
1500 TRANSPORTD TO CAR VIA WHEELCHAIR WITHOUT COMPLICATIONS
--- NOTE | 2018-09-11 19:05 | MORECARE ---
CASE MANAGEMENT DISCHARGE SUMMARY PATIENT: KOLE BRANNON UNIT: [id number] ADM DATE: 09/09/18 AGE: 67 : 50 SEX: M ROOM/BED: D.2309 AUTHOR: ARIS MCDANIELS PHYSICIAN: REFERRING PHYSICIAN: AALIYAH KEVIN MD DATE OF SERVICE: 09/11/18 Discharge Plan Patient Name: KOLE BRANNON Facility: [facility]:[place] : 1950 Planned Disposition: Home Anticipated Discharge Date: 09/11/18 Discharge Date: 09/11/2018 Expected LOS: 2 Initial Reviewer: [email or web address] Initial Review Date: 09/09/2018 Generated: 09/11/18 8:04 pm Patient Name: KOLE BRANNON Page [phone] at 1905 All edits/amendments must be made on the electronic document DICTATION DATE: 09/11/181903 SUGAR REFINER: ZHANG 09/11/181903 RPT#: [id number] DC DATE:09/11/18 STATUS: DIS IN [facility] [address] [place] [address] END OF REPORT
== END 2018-09-11 17:15 | disposition home or self-care (01) | DRG 442 ==
LOC: D.ER 19:34 → D.ICU 21:01 → D.ER 21:18 → D.ICU 09-11 17:15
PROVIDERS: Family Medicine; ADMIT Internal Medicine Nephrology; ATTEND Internal Medicine Nephrology
DX: K72.00 Acute and subacute hepatic failure without coma (principal); F17.203 Nicotine dependence unspecified, with withdrawal; N17.9 Acute kidney failure, unspecified; I85.10 Secondary esophageal varices without bleeding; K21.9 Gastro-esophageal reflux disease without esophagitis; E11.9 Type 2 diabetes mellitus without complications; I10 Essential (primary) hypertension; D64.9 Anemia, unspecified; D70.9 Neutropenia, unspecified; D69.6 Thrombocytopenia, unspecified; K74.60 Unspecified cirrhosis of liver; R41.82 Altered mental status, unspecified

== ENCOUNTER 2018-10-25 05:54 | Day surgery (SDC) | payer MEDICARE, OTHER ==
[~2018-10-25] VITALS: Ht 165.1 cm; Wt 85.9 kg
[2018-10-25 06:22] LABS: HEMATOCRIT 40.2 % (42.0-54.0); HEMOGLOBIN 13.9 g/dL (13.5-17.5); MCH 29.8 pg (26.0-34.0); MCHC 34.6 g/dL (31.0-37.0); MCV 86.3 fL (80.0-100.0); MEAN PLATELET VOLUME 10.4 fL (7.4-10.4); RBC 4.66 10x6/uL (4.20-6.10); RDW 13.6 % (11.5-14.5); WBC 3.6 10x3/uL (4.8-10.8)
[2018-10-25 06:33] LABS: ALBUMIN 3.6 g/dL (3.4-5.0); ANION GAP 8.7 mmol/L (8-16); BILIRUBIN - TOTAL 1.18 mg/dL (0.2-1.3); CALCIUM 9.1 mg/dL (8.5-10.1); CARBON DIOXIDE 30.1 mmol/L (21.0-32.0); CREATININE - SERUM 1.1 mg/dL (0.6-1.3); POTASSIUM - SERUM 4.8 mmol/L (3.5-5.1); PROTEIN - SERUM 7.2 g/dL (6.4-8.2)
[2018-10-25 06:39] LABS: APTT 29.6 SECONDS (22.8-39.4); INR 1.24 (0.85-1.17)
[2018-10-25 07:01] VITALS: BP 130/89; Ht 165.1 cm; Wt 85.9 kg
--- NOTE | 2018-10-25 09:13 | NUR ---
0856 IV DC'D. CATHETER INTACT. NO BLEEDING AT SITE. BANDAID APPLIED.
--- NOTE | 2018-10-25 09:30 | OP ---
PATIENT NAME: KOLE BRANNON MEDICAL RECORD: [id number] :50 LOCATION:[facility] ADMISSION DATE: SURGEON: POONAM PACE DO DATE OF OPERATION: 10/25/2018 PROCEDURE: EGD for variceal surveillance. The patient's last upper endoscopy was performed on 07/26/2018 at which point 2 bands were placed on esophageal varices. SCOPE: Olympus video gastroscope. MEDICATIONS: Propofol 100 mg IV per anesthesia. ESTIMATED BLOOD LOSS: None. COMPLICATIONS: None. FINDINGS: Informed consent was given. The patient was made comfortable with the above medication. After reaching an adequate level of sedation by slow IV push, the patient was placed on his left side. The endoscope was advanced under direct visualization through the mouth to the second portion of the duodenum with ease. In the proximal to mid esophagus, there were grade II esophageal varices without bleeding stigmata. In the distal esophagus, the varices were decompressed and there were scars from previous banding sites. At the GE junction, there was evidence of LA class B reflux-induced esophagitis. The endoscope was advanced beyond the GE junction into the stomach and retroflexed to view the cardia and fundus, which appeared normal other than some portal hypertensive gastropathy. There was diffuse portal hypertensive gastropathy of moderate to severe degree throughout the entire stomach. There was no active bleeding. In the antrum and prepyloric regions of the stomach, there were reactive nodules. One of these nodules had a slightly ulcerated tip and appeared to be healing from a previous possible bleeding site. No biopsies were taken today as these nodules have been biopsied in the past and were found to be benign. The endoscope was advanced beyond the pylorus into the duodenum where there was evidence of portal hypertensive duodenopathy of mild severity. The endoscope was withdrawn from the patient. The patient tolerated the procedure well and there were no complications. IMPRESSION: 1. Grade II esophageal varices in the proximal to mid esophagus. No bands were placed today. 2. LA class B reflux-induced esophagitis. 3. Moderate to severe portal hypertensive gastropathy and duodenopathy. 4. Reactive nodules in the antrum. These were not biopsied today as they had been biopsied in the past and were found to be benign. PLAN AND RECOMMENDATIONS: 1. Discharge home when recovery parameters are met. 2. Low sodium diet. 3. Continue current medications, but increase lactulose to 60 mL t.i.d. and titrate dose or frequency of administration to 2-3 soft bowel movements daily. 4. Recommend Xifaxan 550 mg b.i.d. for ongoing hepatic encephalopathy. This has been discussed in the past and the patient had difficulty acquiring Xifaxan. 5. Repeat EGD in 6 months for continued surveillance of varices. I do recommend he have a CBC, a few weeks prior to his procedure to determine if he OPERATIVE REPORT [id number] KOLE BRANNON will need Doptelet to help raise his platelet levels prior to endoscopy. TRANSINT:[id number] Voice Confirmation ID: [id number] DOCUMENT ID: [id number] POONAM PACE DO at 0930 CC: [id number] DICTATION DATE: 10/25/18818 SOCIAL WORKER: 10/25/18 0852 [facility] 10/25/18 [address] [place] [address]
== END 2018-10-25 09:12 | disposition home or self-care (01) ==
LOC: D.OPS 05:54
PROVIDERS: Anesthesiology; ATTEND Internal Medicine Gastroenterology
DX: I85.00 Esophageal varices without bleeding (principal); K21.0 Gastro-esophageal reflux disease with esophagitis; K76.6 Portal hypertension; K31.89 Other diseases of stomach and duodenum; Z01.812 Encounter for preprocedural laboratory examination

== ENCOUNTER 2018-11-02 14:23 | Emergency (ER) | payer MEDICARE, OTHER ==
[~2018-11-02] VITALS: Ht 165.1 cm; Wt 83.2 kg
[2018-11-02 15:05] VITALS: Ht 165.1 cm; Wt 83.2 kg
[2018-11-02 17:31] VITALS: BP 155/70
[2018-11-02] MEDS ORDERED: VOLTAREN75 MG PO (18:55)
[2018-11-02] MEDS ORDERED: BACLOFEN20 M1 PO (18:55)
== END 2018-11-02 19:31 | disposition home or self-care (01) ==
LOC: D.ER 14:23
DX: M25.551 Pain in right hip (principal); W19.XXXA Unspecified fall, initial encounter; E11.9 Type 2 diabetes mellitus without complications

== ENCOUNTER 2018-11-05 08:53 | Inpatient (IN) | payer MEDICARE, OTHER ==
[~2018-11-05] VITALS: Ht 165.1 cm; Wt 83.2 kg
[~2018-11-05 08:53] MED LIST changes: +BACLOFEN20 M1 PO; +VOLTAREN75 MG PO
--- NOTE | 2018-11-05 09:05 | NUR ---
ACCUCHECK [id number]
[2018-11-05 09:23] LABS: BASOPHILS 0.3 % (0-2); EOSINOPHILS 1.2 % (0-7); HEMATOCRIT 38.6 % (42.0-54.0); HEMOGLOBIN 13.4 g/dL (13.5-17.5); IMMATURE GRANULOCYTES 0.6 % (0-5); LYMPHOCYTES 22.8 % (15-50); MCH 29.6 pg (26.0-34.0); MCHC 34.7 g/dL (31.0-37.0); MCV 85.2 fL (80.0-100.0); MEAN PLATELET VOLUME 10.2 fL (7.4-10.4); NEUTROPHILS 68.1 % (40-80); RBC 4.53 10x6/uL (4.20-6.10); RDW 13.7 % (11.5-14.5); WBC 3.4 10x3/uL (4.8-10.8)
[2018-11-05 09:24] LABS: PLATELET COUNT 45 10x3/uL (130-400)
[2018-11-05 09:25] LABS: APTT 27.8 SECONDS (22.8-39.4); INR 1.22 (0.85-1.17); PROTIME 14.8 SECONDS (11.6-15.0)
[2018-11-05 09:43] LABS: ALBUMIN 3.3 g/dL (3.4-5.0); ALKALINE PHOSPHATASE 194 U/L (46-116); ALT (SGPT) 42 U/L (10-68); BILIRUBIN - TOTAL 0.99 mg/dL (0.2-1.3); CALC OSMOLALITY 297 mosm/kg (275-300); CALCIUM 8.7 mg/dL (8.5-10.1); CARBON DIOXIDE 26.5 mmol/L (21.0-32.0); CHLORIDE - SERUM 104 mmol/L (98-107); CKMB 0.4 U/L (0.0-3.6); CREATINE KINASE 57 UL (21-232); CREATININE - SERUM 1.2 mg/dL (0.6-1.3); GLUCOSE 449 mg/dL (74-106); POTASSIUM - SERUM 4.6 mmol/L (3.5-5.1); PROTEIN - SERUM 6.6 g/dL (6.4-8.2); SODIUM 137 mmol/L (136-145); TROPONIN-I < 0.017 ng/mL (0.000-0.060); UREA NITROGEN 26 mg/dL (7-18); eGFR NON AFRICAN AMERICAN 64 mL/min (90-120)
--- NOTE | 2018-11-05 09:43 | NUR ---
CRITICAL LAB REPORTED TO DR NORMAN. MARIA L 87, GLUCOSE 449
[2018-11-05 09:46] LABS: PLATELET ESTIMATE DECREASED
[2018-11-05 09:47] LABS: ROULEAUX OCC
[2018-11-05 10:45] VITALS: BP 106/70
--- NOTE | 2018-11-05 11:36 | NUR ---
RECEIVED FROM ER VIA [facility]. HE WAS UNABLE TO ASSIST WITH MOVING OVER TO THE BED. HE IS DROWSY BUT AROUSES AND WANTS HIS . HE HAS CONFUSION NOTED. REPEATS QUESTIONS AT TIMES. BBS WITH WHEEZES NOTED. HE HAS LARGE ABDOMEN WITH BOWEL SOUNDS NOTED. HE HAS A BRIEF ON. BED ALARM IS ON BED. HE HAS JERKING UNCONTROLLED MOVEMENTS AND HIS KNEES HAVE BEEN BUCKLING AT HOME WHEN HE TRYS TO WALK FOR THE PAST WEEK. BED IN LOWEST POSITION AND LOCKED. CL IN REACH
[2018-11-05 12:09] VITALS: BP 107/65
[2018-11-05 13:50] VITALS: BP 107/65; BMI 30.5
[2018-11-05 14:54] LABS: % SATURATION 22 % (15-55); IRON 57 ug/dl (35-150); TOTAL IRON BIND CAPACITY 251 ug/dl (260-445); UNSAT IRON BIND CAPACITY 194 ug/dl (150-375)
--- NOTE | 2018-11-05 16:00 | NUR ---
HE WAS FOUND BESIDE HIS BED ON HIS KNEES TRYING TO GET UP OUT OF THE FLOOR. SOME BLOOD WAS NOTED COMING FROM HIS NOSE, BLEEDING WAS CONTROLLED WITH MINIMAL PRESSURE. ASSISTED X3 UP INTO BED. HE WAS INCONTINENT OF BOWEL AND CARE WAS GIVEN. HE DID STATE HE WAS TRYING TO GO TO THE BATHROOM. HIS HAD LEFT TO GO GET A COKE. BED ALARM IS ON. VITAL SIGNS 96% ON ROOM AIR, 69 HR, 20 RESP, 128/67 AND TEMP 98.5. FSBS IS 324. PERRLA. HE HAS SWELLING WITH HEMATOMA BELOW HIS RIGHT EYE WITH SMALL ABRASION NOTED. ICE PACK APPLIED. NORMAL MENTAL STATUS FOR HIM AND HE DENIES ANY PAIN. NO EXTERNAL ROTATION OF HIPS NOTED. NO OTHER INJURIES NOTED. HIS WAS UPSET BECAUSE SHE HAD LEFT AND STATED I NEVER SHOULD HAVE LEFT HIM. I ASK HER NEXT TIME TO JUST LET US KNOW SHE NEEDED TO LEAVE AND MADE SURE BED ALARM WAS CHECKED AND ENSURED IT IS WORKING. CL IN REACH
--- NOTE | 2018-11-05 16:30 | NUR ---
SPOKE WITH FRED LANE AND SHE IS AWARE OF FALL AND INJURIES. NEW ORDER GIVEN TO GET CT OF HIS HEAD AND CERVIAL. IS AWARE OF NEW ORDER
--- NOTE | 2018-11-05 17:45 | NUR ---
SON IN ROOM AND CAME OUT BECAUSE HE NEEDED TO USE THE BATHROOM. HE USED THE URINAL WHILE TURNED ON HIS SIDE IN THE BED. NO CHANGE IN STATUS NOTED. CONTINUES WITH CONFUSION AND NEEDING REORIENT OFTEN. SOME SWELLING AND BRUISING NOTED BELOW RIGHT EYE. DENIES PAIN
[2018-11-05 17:50] VITALS: BP 126/70
--- NOTE | 2018-11-05 19:45 | NUR ---
PT WENT TO CT
[2018-11-05 20:00] VITALS: BP 164/62
--- NOTE | 2018-11-05 20:07 | NUR ---
RECEIVED BACK FROM CT, BED IS LOW, SRX2, CALL LIGHT IN REACH, FAMILY AT BEDSIDE, TONI ALARM IS ON, WILL CONTINUE PLAN OF CARE
--- NOTE | 2018-11-05 22:47 | NUR ---
NOTICED AN ORDER FOR TELEMTRY-NONE AVAILABLE AT THIS TIME
[2018-11-06] VITALS: BP 103/55
[2018-11-06 03:00] LABS: UDS - AMPHET NEGATIVE QUAL (NEGATIVE); UDS - BARB NEGATIVE QUAL (NEGATIVE); UDS - BENZO NEGATIVE QUAL (NEGATIVE); UDS - COCAINE NEGATIVE QUAL (NEGATIVE); UDS - OPIATE NEGATIVE QUAL (NEGATIVE); UDS - PCP NEGATIVE QUAL (NEGATIVE); UDS - THC NEGATIVE QUAL (NEGATIVE)
--- NOTE | 2018-11-06 03:33 | NUR ---
I have reviewed this patient and I concur with the Shift Assessment completed by the Licensed Practical Nurse today this shift.
[2018-11-06 04:00] VITALS: BP 103/59
[2018-11-06 04:37] LABS: BASOPHILS 0.3 % (0-2); EOSINOPHILS 2.1 % (0-7); HEMATOCRIT 34.8 % (42.0-54.0); HEMOGLOBIN 11.8 g/dL (13.5-17.5); IMMATURE GRANULOCYTES 0.3 % (0-5); LYMPHOCYTES 27.7 % (15-50); MCH 29.4 pg (26.0-34.0); MCHC 33.9 g/dL (31.0-37.0); MCV 86.6 fL (80.0-100.0); MEAN PLATELET VOLUME 10.8 fL (7.4-10.4); MONOCYTES 10.9 % (2-11); NEUTROPHILS 58.7 % (40-80); RBC 4.02 10x6/uL (4.20-6.10); RDW 13.8 % (11.5-14.5); WBC 3.3 10x3/uL (4.8-10.8)
[2018-11-06 04:41] LABS: PLATELET COUNT 48 10x3/uL (130-400)
[2018-11-06 04:49] LABS: ALBUMIN 2.7 g/dL (3.4-5.0); ANION GAP 10.7 mmol/L (8-16); BILIRUBIN - TOTAL 1.27 mg/dL (0.2-1.3); CALCIUM 8.6 mg/dL (8.5-10.1); CARBON DIOXIDE 27.5 mmol/L (21.0-32.0); CREATININE - SERUM 1.1 mg/dL (0.6-1.3); POTASSIUM - SERUM 4.2 mmol/L (3.5-5.1); PROTEIN - SERUM 5.5 g/dL (6.4-8.2)
--- NOTE | 2018-11-06 07:43 | NUR ---
PT AWAKE AND CONFUSED, PT REPEATS EVERYTHING I ASK/SAY, UNSURE WHY. PT REQUESTS TO GET UP TO THE COMMODE AND RECLINER BESIDE CHAIR, BUT D/T TO PTS LARGE FALL YESTERDAY, I INFORMED HIM WE NEEDED TO WAIT FOR PT TO EVALUATE HIM BEFORE WE ATTEMPTED TO GET HIM UP AGAIN. PT IS UNHAPPY WITH THIS, BUT COMPLIENT. C/O RIGHT SHOULDER PAIN TAHT STARTED THIS MORNING. PT SENT HIS SON OUT TO TELL ME HE NEEDED TO GET ON THE TOILET, AID YOAV AND I WENT IN TO ASSIST WITH BEDPAN AND PT STATED NO HE DIDN'T NEED IT. PT IS CLEARLY CONFUSED. AT BEDSIDE. CL IN REACH, SRX2,, BED ALARM ON AND FUNCTIONING WNL
[2018-11-06 08:28] VITALS: BP 112/62
[2018-11-06 12:22] VITALS: Ht 165.1 cm; Wt 83.2 kg
[2018-11-06 16:04] VITALS: BP 128/65
--- NOTE | 2018-11-06 17:19 | NUR ---
I have reviewed this patient and I concur with the Shift Assessment completed by the Licensed Practical Nurse today this shift.
--- NOTE | 2018-11-06 17:56 | NUR ---
PT HAS BEEN AWAKE AND CONFUSED MOST OF THE DAY. PT GETS DISTRACTED EASILY AND IS VERY EMOTIONAL, SMALL SAD THINGS OR INCONVIENCES MAKE HIM VERY SAD. PHYSICAL THERAPY WORKED WITH THE PT TODAY AND MARYLOU (PHYSCIAL THERAPY) STATED THE PT WAS STRONG AND FAST ON HIS FEET, BUT THEY WILL RECCOMEND HE BE UP X1 ASSIST. IF HIS LEGS START JERKING NOT TO GET UP. PT HAS BEEN AMBULATING WITH TO BATHROOM AND BACK, OBSERVED/ASSISTED BY NURSE AND AID. PT HAS DONE WELL, WITH ONE EPISODE OF "SHAKY LEGS" WHEN ON THE TOILET. PT STATES HE THINKS HIS LEGS ONLY SHAKES BECAUSE HE WAS SITTING UP TOO LONG. STILL AT BEDSIDE, CL IN REACH, SRX2.
--- NOTE | 2018-11-06 19:00 | NUR ---
PATIENT SITTING UP TO SIDE OF BED. AT BEDSIDE. PATIENT HAS NO COMPLAINTS AT THIS TIME. NO DISTRESS NOTED.
[2018-11-06 20:00] VITALS: BP 125/69
--- NOTE | 2018-11-06 23:40 | NUR ---
PATIENT SITTING UP TO SIDE OF BED. AT BEDSIDE. NO COMPLAINTS AT THIS TIME. NO DISTRESS NOTED.
[2018-11-07] VITALS: BP 111/69
--- NOTE | 2018-11-07 03:04 | NUR ---
I have reviewed this patient and I concur with the Shift Assessment completed by the Licensed Practical Nurse today this shift.
[2018-11-07 04:00] VITALS: BP 101/51
[2018-11-07 05:05] LABS: BASOPHILS 0.9 % (0-2); EOSINOPHILS 3.2 % (0-7); HEMOGLOBIN 11.8 g/dL (13.5-17.5); IMMATURE GRANULOCYTES 0.3 % (0-5); MCH 29.4 pg (26.0-34.0); MCHC 33.7 g/dL (31.0-37.0); MCV 87.3 fL (80.0-100.0); MEAN PLATELET VOLUME 10.7 fL (7.4-10.4); MONOCYTES 14.7 % (2-11); NEUTROPHILS 48.9 % (40-80); RBC 4.01 10x6/uL (4.20-6.10); RDW 13.8 % (11.5-14.5); WBC 3.4 10x3/uL (4.8-10.8)
[2018-11-07 05:06] LABS: PLATELET COUNT 43 10x3/uL (130-400)
[2018-11-07 05:21] LABS: ALBUMIN 2.7 g/dL (3.4-5.0); ANION GAP 9.8 mmol/L (8-16); BILIRUBIN - TOTAL 0.82 mg/dL (0.2-1.3); CALCIUM 8.4 mg/dL (8.5-10.1); CARBON DIOXIDE 27.1 mmol/L (21.0-32.0); CREATININE - SERUM 1.2 mg/dL (0.6-1.3); POTASSIUM - SERUM 3.9 mmol/L (3.5-5.1); PROTEIN - SERUM 5.6 g/dL (6.4-8.2)
[2018-11-07 05:36] LABS: PLATELET ESTIMATE DECREASED
--- NOTE | 2018-11-07 05:44 | NUR ---
DONNELL EL PAGED ABOUT CRITICAL LAB PLATELET COUNT OF 43.
--- NOTE | 2018-11-07 07:10 | NUR ---
PT AWAKE AND CONFUSED THIS MORNING. VERY EMOTIONAL HE WAS YESTERDAY. PT IS UP IN THE BATHROOM. STATES THEY DIDN'T SLEEP WELL. NO COMPLAINTS/CONCERNS, ALL QUESTIONS ANSWRED TO THE BEST OF MY ABILITY. CL IN REACH, SRX2.
[2018-11-07 08:32] VITALS: BP 116/72
--- NOTE | 2018-11-07 09:41 | NUR ---
PT HAS HAD SHOWER, LINNENS CHANGED. ASSISTED WITH EVERYTHING PER HER USUAL. HAS ASSISTED PT WITH SHOWER, BED CHANGED, TO THE BATHROOM AND PRETTY MUCH ALL OTHER ASPECTS OF CARE. CALLED MANAGER STRATEGIC ALLIANCES JOSHUA AND SHE APPROVED THE PTS TO HAVE A GUEST TRAY. WILL ORDER.
[2018-11-07 13:05] VITALS: BP 131/77
--- NOTE | 2018-11-07 14:21 | NUR ---
I have reviewed this patient and I concur with the Shift Assessment completed by the Licensed Practical Nurse today this shift.
[2018-11-07 16:19] VITALS: BP 114/62
--- NOTE | 2018-11-07 16:23 | NUR ---
rehab prescreen; pt would make a good canidate for IRF. will monitor progress and admit when medically ready. thank you for this eval. melisa bhagat lpn clinical liasion
--- NOTE | 2018-11-07 16:53 | NUR ---
PT PREFERS TO TAKE HIS LACTOLOSE WITH FOOD, STATING IT MAKES HIM VOMIT TO TAKE IT ON AN EMPTY STOMACH. THEY ARE BOTH HOPEFUL TO GO HOME TOMORROW, BUT DISCUSSED WITH AND PT ABOUT DR. BRITT VISITING TO TRY AND FIGURE OUT WHATS MAKING THE PT SO EMOTIONAL. PT HAS BEEN LESS EMOTIONAL TODAY THAN PREVIOUS DAY, ONLY A FEW MINOR TREMORS REPORTED. OVERALL SEEMS MUCH BETTER COMPARED TO PREVIOUS DAYS. AT BEDSIDE, STATES SHE'LL BE SAYING THE NIGHT. CL IN REACH, SRX2. PT CURRENTLY UP EATING SUPPER.
[2018-11-07 20:00] VITALS: BP 115/69
[2018-11-08] VITALS: BP 122/68
[2018-11-08 04:00] VITALS: BP 107/69
[2018-11-08 04:48] LABS: BASOPHILS 0.6 % (0-2); EOSINOPHILS 3.2 % (0-7); HEMATOCRIT 36.7 % (42.0-54.0); HEMOGLOBIN 12.5 g/dL (13.5-17.5); LYMPHOCYTES 31.3 % (15-50); MCH 29.4 pg (26.0-34.0); MCHC 34.1 g/dL (31.0-37.0); MCV 86.4 fL (80.0-100.0); MEAN PLATELET VOLUME 10.4 fL (7.4-10.4); MONOCYTES 11.3 % (2-11); NEUTROPHILS 53.6 % (40-80); RBC 4.25 10x6/uL (4.20-6.10); RDW 13.6 % (11.5-14.5); WBC 3.1 10x3/uL (4.8-10.8)
[2018-11-08 04:55] LABS: PLATELET COUNT 52 10x3/uL (130-400)
[2018-11-08 05:08] LABS: ALBUMIN 2.8 g/dL (3.4-5.0); ALKALINE PHOSPHATASE 160 U/L (46-116); ALT (SGPT) 34 U/L (10-68); BILIRUBIN - TOTAL 1.13 mg/dL (0.2-1.3); CALC OSMOLALITY 284 mosm/kg (275-300); CALCIUM 8.5 mg/dL (8.5-10.1); CARBON DIOXIDE 26.8 mmol/L (21.0-32.0); CHLORIDE - SERUM 107 mmol/L (98-107); CREATININE - SERUM 0.9 mg/dL (0.6-1.3); POTASSIUM - SERUM 4.4 mmol/L (3.5-5.1); PROTEIN - SERUM 5.9 g/dL (6.4-8.2); SODIUM 140 mmol/L (136-145); UREA NITROGEN 21 mg/dL (7-18); eGFR NON AFRICAN AMERICAN 89 mL/min (90-120)
[2018-11-08 05:20] LABS: GLUCOSE 158 mg/dL (74-106)
[2018-11-08 09:42] VITALS: BP 104/69
--- NOTE | 2018-11-08 15:37 | MORECARE ---
CASE MANAGEMENT DISCHARGE SUMMARY PATIENT: KOLE BRANNON UNIT: [id number] ADM DATE: 11/05/18 AGE: 68 : 50 SEX: M ROOM/BED: D.2109 AUTHOR: ARIS MCDANIELS PHYSICIAN: REFERRING PHYSICIAN: AALIYAH KEVIN MD DATE OF SERVICE: 11/08/18 Discharge Plan Patient Name: KOLE BRANNON [facility] [facility] 1950 Planned Disposition: Home with Home Health Anticipated Discharge Date: 11/08/18 Discharge Date: Expected LOS: 3 Initial Reviewer: [email or web address] Initial Review Date: 11/08/2018 Generated: 11/08/18 4:36 pm DCPIA - Discharge Planning Initial Assessment Updated by [email or web address]: Kenneth Ridley on 11/08/18 3:34 pm * Is the patient Alert and Oriented? Yes * How many steps to enter\exit or inside your home? * PCP DR. SMALLS * Pharmacy [facility]. * Preadmission Environment Home with Family * ADLs Independent * Equipment Walker * Other Equipment NO MEDICAL EQUIPMENT PROVIDER PREFERENCE * List name and contact numbers for known caregivers / representatives who currently or will assist patient after discharge: JENISE ANDREWS, SPOUSE, * Verbal permission to speak to the caregivers and representatives has been obtained from the patient. Yes * Community resources currently utilized None * Please name any agencies selected above. NONE * Additional services required to return to the preadmission environment? No * Can the patient safely return to the preadmission environment? Yes * Has this patient been hospitalized within the prior 30 days at any hospital? No Patient Name: KOLE BRANNON Page [phone] at 1537 All edits/amendments must be made on the electronic document DICTATION DATE: 11/08/181535 MUD ENGINEER: ZHANG 11/08/181535 RPT#: [id number] DC DATE: STATUS: ADM IN [facility] [address] [place] [address] END OF REPORT
--- NOTE | 2018-11-08 15:44 | MORECARE ---
CASE MANAGEMENT DISCHARGE SUMMARY PATIENT: KOLE BRANNON UNIT: [id number] ADM DATE: 11/05/18 AGE: 68 : 50 SEX: M ROOM/BED: D.2106 AUTHOR: ARSLAN,DOC PHYSICIAN: REFERRING PHYSICIAN: AALIYAH KEVIN MD DATE OF SERVICE: 11/08/18 Discharge Plan Patient Name: KOLE BRANNON Facility: [facility]:[place] : 1950 Planned Disposition: Home with Home Health Anticipated Discharge Date: 11/08/18 Discharge Date: Expected LOS: 3 Initial Reviewer: [email or web address] Initial Review Date: 11/08/2018 Generated: 11/08/18 4:44 pm Comments DCP- Discharge Planning Updated by [email or web address]: Kenneth Ridley on 11/08/18 2:[address] Patient Name: KOLE BRANNON Admission Status: ER Accout number: [id number] Admission Date: 11-05-2018 : 1950 Admission Diagnosis: Attending: AALIYAH KEVIN Current LOS: 3 Anticipated DC Date: 11-08-2018 Planned Disposition: Home with Home Health Primary Insurance: MEDICARE A & B PLANNED EXTERNAL PROVIDER: [facility] Discharge Planning Comments: CM RECEIVED ORDER FOR INPATIENT REHAB PRESCREENING. CM MET WITH PT AND SPOUSE IN ROOM TO DISCUSS DISCHARGE PLANNING AND NEEDS. KOLE BRANNON provided verbal consent to discuss current and ongoing needs with/in the presence of: SPOUSE, JENISE. PT REPORTS LIVING AT HOME INDEPENDENTLY WITH SPOUSE. PT HAS A STANDARD WALKER WITH NO MEDICAL EQUIPMENTPROVIDER PREFERENCE. PT HAS NO OUTSIDE SERVICES ASSISTING IN THE HOME. CM DISCUSSED AVAILABILITY OF HOME HEALTH, REHAB SERVICES AND MEDICAL EQUIPMENT. PT AND SPOUSE ARE NOT INTERESTED IN INPATIENT OR HALF-WAY REHAB. THEY WOULD ACCEPT HOME HEALTH. HOME HEALTH PROVIDER LISTING GIVEN, PT HAS NOT CHOICE ON HOME HEALTH, CHOICE SIGNED. PT REPORTS HIS WILL PICK HIM UP FOR DISCHARGE HOME. IMPORTANT MESSAGE FROM MEDICARE PROVIDED AND EXPLAINED. CM CALLED [facility], , SPOKE TO DONNELL WHO ACCEPTED HOME HEALTH REFERRAL. REFERRAL FAXED TO [facility] AT [phone]. FOR DISCHARGE, NOTIFY [facility] AT [phone], FAX DISCHARGE INFORMATION TO [facility] AT [phone]. Wire Frame Lampshade Maker: Kenneth Ridley DCPIA - Discharge Planning Initial Assessment Updated by [email or web address]: Kenneth Ridley on 11/08/18 3:34 pm * Is the patient Alert and Oriented? Yes * How many steps to enter\exit or inside your home? * PCP DR. SMALLS * Pharmacy [facility]. * Preadmission Environment Home with Family * ADLs Independent * Equipment Walker * Other Equipment NO MEDICAL EQUIPMENT PROVIDER PREFERENCE * List name and contact numbers for known caregivers / representatives who currently or will assist patient after discharge: JENISE ANDREWS, SPOUSE, * Verbal permission to speak to the caregivers and representatives has been obtained from the patient. Yes * Community resources currently utilized None * Please name any agencies selected above. NONE * Additional services required to return to the preadmission environment? No * Can the patient safely return to the preadmission environment? Yes * Has this patient been hospitalized within the prior 30 days at any hospital? No External Providers External Provider: [facility] Next Contact Date: 11/08/2018 Service Request Date: Service Type: Resolution: Reviewer: Comments: Last DP export: 11/08/18 2:37 pm Patient Name: KOLE BRANNON Page [phone] at 1544 All edits/amendments must be made on the electronic document DICTATION DATE: 11/08/18 1544 CELL REPAIRER: ZHANG 11/08/18 1544 RPT#: [id number] [place] DATE: STATUS: ADM IN [facility] [address] [place] [address] END OF REPORT
[2018-11-08] MEDS ORDERED: BACLOFEN20 M1 PO (16:09)
[2018-11-08] MEDS ORDERED: LEXAPRO10 MG PO (16:10)
--- NOTE | 2018-11-09 08:36 | MORECARE ---
CASE MANAGEMENT DISCHARGE SUMMARY PATIENT: KOLE BRANNON UNIT: [id number] ADM DATE: 11/05/18 AGE: 68 : 50 SEX: M ROOM/BED: D.2109 AUTHOR: ARIS MCDANIELS PHYSICIAN: REFERRING PHYSICIAN: AALIYAH KEVIN MD DATE OF SERVICE: 11/09/18 Discharge Plan Patient Name: KOLE BRANNON Facility: [facility]:[place] : 1950 Planned Disposition: Home with Home Health Anticipated Discharge Date: 11/08/18 Discharge Date: 11/08/2018 Expected LOS: 3 Initial Reviewer: [email or web address] Initial Review Date: 11/08/2018 Generated: 11/09/18 9:36 am Comments DCP- Discharge Planning Updated by [email or web address]: Kenneth Ridley on 11/09/18 7:[address] Patient Name: KOLE BRANNON Encounter No: [id number] : 1950 Primary Insurance: MEDICARE A & B Anticipated DC Date: 11-08-2018 Planned Disposition: Home with Home Health External Planned Provider: [facility] DCP follow-up note: CM REVIEWED CHART, PT DISCHARGED YESTERDAY AFTERNOON; CM NOTIFIED [facility] AT [phone], FAXED DISCHARGE INFORMATION TO [facility] AT [phone]. [employer] Supervisor: Kenneth Ridley DCP- Discharge Planning Updated by [email or web address]: Kenneth Ridley on 11/08/18 2:[address] Patient Name: KOLE BRANNON Admission Status: ER Accout number: [id number] Admission Date: 11-05-2018 : 1950 Admission Diagnosis: Attending: AALIYAH KEVIN Current LOS: 3 Anticipated DC Date: 11-08-2018 Planned Disposition: Home with Home Health Primary Insurance: MEDICARE A & B PLANNED EXTERNAL PROVIDER: [facility] Discharge Planning Comments: CM RECEIVED ORDER FOR INPATIENT REHAB PRESCREENING. CM MET WITH PT AND SPOUSE IN ROOM TO DISCUSS DISCHARGE PLANNING AND NEEDS. KOLE BRANNON provided verbal consent to discuss current and ongoing needs with/in the presence of: SPOUSE, JENISE. PT REPORTS LIVING AT HOME INDEPENDENTLY WITH SPOUSE. PT HAS A STANDARD WALKER WITH NO MEDICAL EQUIPMENTPROVIDER PREFERENCE. PT HAS NO OUTSIDE SERVICES ASSISTING IN THE HOME. CM DISCUSSED AVAILABILITY OF HOME HEALTH, REHAB SERVICES AND MEDICAL EQUIPMENT. PT AND SPOUSE ARE NOT INTERESTED IN INPATIENT OR CUSTODIAL REHAB. THEY WOULD ACCEPT HOME HEALTH. HOME HEALTH PROVIDER LISTING GIVEN, PT HAS NOT CHOICE ON HOME HEALTH, CHOICE SIGNED. PT REPORTS HIS WILL PICK HIM UP FOR DISCHARGE HOME. IMPORTANT MESSAGE FROM MEDICARE PROVIDED AND EXPLAINED. CM CALLED [facility], , SPOKE TO DONNELL WHO ACCEPTED HOME HEALTH REFERRAL. REFERRAL FAXED TO [facility] AT [phone]. FOR DISCHARGE, NOTIFY [facility] AT [phone], FAX DISCHARGE INFORMATION TO [facility] AT [phone]. [employer] Supervisor: Kenneth Ridley DCPIA - Discharge Planning Initial Assessment Updated by [email or web address]: Kenneth Ridley on 11/08/18 3:34 pm * Is the patient Alert and Oriented? Yes * How many steps to enter\exit or inside your home? * PCP DR. SMALLS * Pharmacy [facility]. * Preadmission Environment Home with Family * ADLs Independent * Equipment Walker * Other Equipment NO MEDICAL EQUIPMENT PROVIDER PREFERENCE * List name and contact numbers for known caregivers / representatives who currently or will assist patient after discharge: JENISE ANDREWS, SPOUSE, * Verbal permission to speak to the caregivers and representatives has been obtained from the patient. Yes * Community resources currently utilized None * Please name any agencies selected above. NONE * Additional services required to return to the preadmission environment? No * Can the patient safely return to the preadmission environment? Yes * Has this patient been hospitalized within the prior 30 days at any hospital? No Coverage Notice Reviewer: [email or web address] Evan Ridley Notice Issued Date-Time: 11/08/2018 15:10 Notice Type: IM Discharge Notice Notice Delivered To: Patient Relationship to Patient: Clerical Car Checker Name: Delivery Method: HAND - Hand Delivered Lolly Days: Prior Verbal Notification: Recipient Understood Notice: Yes Recipient Signature: Yes Med Rec Note Co-signed by Attending: Coverage Notice Comment: Reviewer: [email or web address] Evan Ridley Notice Issued Date-Time: 11/08/2018 15:10 Notice Type: Patient Choice Letter Notice Delivered To: Patient Relationship to Patient: Clerical Car Checker Name: Delivery Method: HAND - Hand Delivered Lolly Days: Prior Verbal Notification: Recipient Understood Notice: Yes Recipient Signature: Yes Med Rec Note Co-signed by Attending: Coverage Notice Comment: NO HOME HEALTH PROVIDER PREFERENCE Last DP export: 11/08/18 2:44 pm Patient Name: KOLE BRANNON Page [phone] at 0836 All edits/amendments must be made on the electronic document DICTATION DATE: 11/09/18834 DIRECTOR DRUG: ZHANG 11/09/1835 RPT#: [id number] DC DATE:11/08/18 STATUS: DIS IN [facility] [address] [place] [address] END OF REPORT
--- NOTE | 2018-11-09 14:05 | CN ---
PATIENT NAME:KOLE BRANNON MEDICAL RECORD: [id number] : 50 LOCATION:[facility].2109 ADMIT DATE: 11/05/18 ACCOUNT: [id number] CONSULTING PHYSICIAN: RASHAD BRITT MD REFERRING PHYSICIAN: AALIYAH KEVIN MD DATE OF CONSULTATION: 11/08/2018 IDENTIFYING DATA: The patient is 68 years old and he is admitted to the hospital secondary to hepatic encephalopathy and liver failure. CHIEF COMPLAINT: Confusion, anxiety, and depression. HISTORY OF PRESENT ILLNESS: The patient is a very nice man who unfortunately has advanced liver disease. He has a fatty liver that is nonalcoholic and he has had cirrhosis. I think there has been a parallel in the improvement in his cognition with the improvement in his ammonia. Regarding the depression and anxiety, this is not something that has been a lifelong problem and obviously, there is a pretty significant stress situation with him having the misfortune of being in hepatic failure. He is not suicidal, he is not psychotic. He has no history of drug or alcohol abuse. ASSESSMENT: Major depression, moderate severity without psychotic features. PLAN: At this time, I think the patient is receiving too much Klonopin. I am going to flatly just stop it. I think the Klonopin with the Neurontin is producing some sedation and it can reasonably be discontinued. The patient has no evidence of acute or direct dangerousness. I agree with the use of the Lexapro. I explained the condition to the patient and his and answered their questions. He does not need follow up with a psychiatrist. I would continue the Lexapro. TRANSINT:[id number] Voice Confirmation ID: [id number] DOCUMENT ID: [id number] RASHAD BRITT MD at 1405 CC: [id number] DICTATION DATE: 11/08/18 1409 SOFTWARE RELIABILITY ENGINEER: 11/08/18 1428 DIS IN 11/08/18 [address] [place] [address]
== END 2018-11-08 17:53 | disposition home health service (06) | DRG 441 ==
LOC: D.ER 08:53 → D.M2 11:00
PROVIDERS: Family Medicine; ADMIT Internal Medicine Nephrology; ATTEND Internal Medicine Nephrology
DX: K72.90 Hepatic failure, unspecified without coma (principal); G93.41 Metabolic encephalopathy; D61.818 Other pancytopenia; F17.213 Nicotine dependence, cigarettes, with withdrawal; F33.1 Major depressive disorder, recurrent, moderate; N17.9 Acute kidney failure, unspecified; K74.60 Unspecified cirrhosis of liver; K75.81 Nonalcoholic steatohepatitis (NASH); E11.40 Type 2 diabetes mellitus with diabetic neuropathy, unspecified

== ENCOUNTER → 2018-12-17 12:39 | Outpatient (CLI) | payer MEDICARE, OTHER ==
[2018-11-06 12:22] VITALS: BMI 30.4
[~2018-12-17 12:39] MED LIST changes: +LEXAPRO10 MG PO
== END | disposition home or self-care (01) ==
LOC: D.LAB 12:39
PROVIDERS: ATTEND Internal Medicine Gastroenterology
DX: K74.60 Unspecified cirrhosis of liver (principal); R19.4 Change in bowel habit; R11.2 Nausea with vomiting, unspecified; R19.7 Diarrhea, unspecified

== ENCOUNTER → 2019-01-26 09:05 | Outpatient (CLI) | payer MEDICARE, OTHER ==
[2018-11-06 12:22] VITALS: BMI 30.4
[~2019-01-26 09:05] MED LIST changes: +GENERLAC PO
== END | disposition home or self-care (01) ==
LOC: D.US 09:05
PROVIDERS: ATTEND Internal Medicine Gastroenterology
DX: K74.60 Unspecified cirrhosis of liver (principal); R14.0 Abdominal distension (gaseous); M79.89 Other specified soft tissue disorders; R63.5 Abnormal weight gain

== ENCOUNTER 2019-03-10 07:27 | Outpatient (CLI) | payer MEDICARE, OTHER ==
[~2019-03-10] VITALS: Ht 165.1 cm; Wt 90.5 kg
[~2019-03-10 07:27] MED LIST changes: -GENERLAC PO
[2019-03-10 07:54] LABS: HEMOGLOBIN 12.7 g/dL (13.5-17.5); MCH 29.4 pg (26.0-34.0); MCHC 33.4 g/dL (31.0-37.0); MEAN PLATELET VOLUME 8.6 fL (7.4-10.4); RBC 4.32 10x6/uL (4.20-6.10); RDW 13.8 % (11.5-14.5); WBC 2.2 10x3/uL (4.8-10.8)
[2019-03-10 07:56] LABS: PLATELET COUNT 43 10x3/uL (130-400)
[2019-03-10 08:12] LABS: APTT 31.7 SECONDS (22.8-39.4); INR 1.33 (0.85-1.17); PROTIME 15.9 SECONDS (11.6-15.0)
[2019-03-10 08:24] LABS: ALBUMIN 3.1 g/dL (3.4-5.0); ALKALINE PHOSPHATASE 238 U/L (46-116); ALT (SGPT) 48 U/L (10-68); CALC OSMOLALITY 281 mosm/kg (275-300); CALCIUM 8.9 mg/dL (8.5-10.1); CARBON DIOXIDE 33.3 mmol/L (21.0-32.0); CHLORIDE - SERUM 106 mmol/L (98-107); CREATININE - SERUM 0.9 mg/dL (0.6-1.3); GLUCOSE 166 mg/dL (74-106); POTASSIUM - SERUM 4.1 mmol/L (3.5-5.1); PROTEIN - SERUM 6.8 g/dL (6.4-8.2); SODIUM 140 mmol/L (136-145); UREA NITROGEN 11 mg/dL (7-18); eGFR NON AFRICAN AMERICAN 89 mL/min (90-120)
[2019-03-10] MEDS ORDERED: GENERLAC PO (09:37)
[2019-03-10 09:44] VITALS: BP 124/62; Ht 165.1 cm; Wt 90.5 kg
[2019-03-10 10:59] LABS: EOSINOPHILS 1 % (0-7); LYMPHOCYTES 23 % (15-50); MONOCYTES 18 % (2-11); NEUTROPHILS 58 % (40-80); PLATELET ESTIMATE DECREASED
== END 2019-03-10 11:59 | disposition home or self-care (01) ==
LOC: D.SP 07:27 → D.CT 10:00 → D.SP 11:59
PROVIDERS: Specialist; ATTEND Internal Medicine Gastroenterology
DX: K74.0 Hepatic fibrosis (principal); R19.7 Diarrhea, unspecified; R11.0 Nausea

== ENCOUNTER 2019-04-12 16:56 | Emergency (ER) | payer MEDICARE, OTHER ==
[2019-03-10 09:44] VITALS: Ht 165.1 cm; Wt 87.3 kg
[~2019-04-12] VITALS: Ht 165.1 cm; Wt 87.3 kg
[~2019-04-12 16:56] MED LIST changes: +GENERLAC PO
[2019-04-12 18:08] LABS: BASOPHILS 0.3 % (0-2); EOSINOPHILS 2.4 % (0-7); HEMATOCRIT 40.4 % (42.0-54.0); HEMOGLOBIN 13.4 g/dL (13.5-17.5); IMMATURE GRANULOCYTES 0.3 % (0-5); MCH 29.6 pg (26.0-34.0); MCHC 33.2 g/dL (31.0-37.0); MCV 89.4 fL (80.0-100.0); MONOCYTES 13.4 % (2-11); NEUTROPHILS 57.6 % (40-80); RBC 4.52 10x6/uL (4.20-6.10); RDW 14.3 % (11.5-14.5); WBC 3.4 10x3/uL (4.8-10.8)
[2019-04-12 18:12] LABS: CALC OSMOLALITY 281 mosm/kg (275-300); CALCIUM 8.9 mg/dL (8.5-10.1); CARBON DIOXIDE 31.4 mmol/L (21.0-32.0); CHLORIDE - SERUM 105 mmol/L (98-107); PLATELET COUNT 57 10x3/uL (130-400); POTASSIUM - SERUM 3.8 mmol/L (3.5-5.1); SODIUM 141 mmol/L (136-145); UREA NITROGEN 15 mg/dL (7-18); eGFR NON AFRICAN AMERICAN 79 mL/min (90-120)
[2019-04-12 18:18] LABS: GLUCOSE 105 mg/dL (74-106)
[2019-04-12 18:21] LABS: APTT 30.1 SECONDS (22.8-39.4); INR 1.24 (0.85-1.17); PROTIME 15.5 SECONDS (11.6-15.0)
[2019-04-12 18:29] LABS: ALBUMIN 3.4 g/dL (3.4-5.0); ALKALINE PHOSPHATASE 311 U/L (46-116); ALT (SGPT) 86 U/L (10-68); BILIRUBIN - TOTAL 2.83 mg/dL (0.2-1.3); CKMB 0.4 U/L (0.0-3.6); CREATINE KINASE 69 UL (21-232); PROTEIN - SERUM 7.3 g/dL (6.4-8.2); THYROID STIMULATING HORMONE 3.51 uIU/mL (0.36-3.74)
[2019-04-12 18:30] LABS: TROPONIN-I < 0.017 ng/mL (0.000-0.060)
[2019-04-12 18:45] VITALS: BP 122/62
[2019-04-12 19:01] LABS: UDS - AMPHET NEGATIVE QUAL (NEGATIVE); UDS - BARB NEGATIVE QUAL (NEGATIVE); UDS - BENZO NEGATIVE QUAL (NEGATIVE); UDS - COCAINE NEGATIVE QUAL (NEGATIVE); UDS - OPIATE NEGATIVE QUAL (NEGATIVE); UDS - PCP NEGATIVE QUAL (NEGATIVE); UDS - THC NEGATIVE QUAL (NEGATIVE)
[2019-04-12 19:03] LABS: APPEARANCE CLEAR (CLEAR); BILIRUBIN NEGATIVE (NEGATIVE); COLOR DK YELLOW (YELLOW); GLUCOSE NEGATIVE (NEGATIVE); KETONE NEGATIVE (NEGATIVE); NITRITE NEGATIVE (NEGATIVE); PROTEIN NEGATIVE (NEGATIVE); SPECIFIC GRAVITY 1.025 (1.005-1.020); UROBILINOGEN NORMAL (NORMAL)
[2019-04-12 19:06] LABS: BACTERIA FEW /hpf (NEGATIVE); MUCUS <1+ /lpf (NONE SEEN); RED CELLS - URINE OCC /hpf (0-5); WHITE CELLS - URINE 0-5 /hpf (NEGATIVE)
[2019-04-12 19:08] LABS: PLATELET ESTIMATE DECREASED
[2019-04-12 20:00] VITALS: BP 124/64
--- NOTE | 2019-04-12 20:45 | NUR ---
PT GIVEN JELLO TO EAT WITH ANTIBIOTIC. PT TOLERATED WELL. DENIES ANY NEEDS AT THIS TIME, CALL LIGHT WITHIN REACH, AT BEDSIDE. WILL CONTINUE TO MONITOR.
--- NOTE | 2019-04-12 21:33 | NUR ---
PT GIVEN URINAL, DENIES ANY FURTHER NEEDS AT THIS TIME. WILL CONTINUE TO MONITOR.
[2019-04-12 22:20] VITALS: BP 110/60
--- NOTE | 2019-04-12 22:55 | NUR ---
PT TO BE DISCHARGED TO HOME INSTEAD OF ADMITTED TO HOSPITAL PER MANOLO NGUYEN APRN AND FLORECITA MURPHY. HAND CUTTER APPRENTICE NOTIFIED.
== END 2019-04-12 23:03 | disposition other institution (70) ==
LOC: D.ER 16:56 → D.M2 21:10
PROVIDERS: Family Medicine
DX: R41.82 Altered mental status, unspecified (principal); J01.90 Acute sinusitis, unspecified; K74.60 Unspecified cirrhosis of liver; R94.5 Abnormal results of liver function studies; R29.6 Repeated falls; D69.6 Thrombocytopenia, unspecified; D68.59 Other primary thrombophilia; E11.9 Type 2 diabetes mellitus without complications; F17.210 Nicotine dependence, cigarettes, uncomplicated

== ENCOUNTER 2019-04-20 06:20 | Outpatient (CLI) | payer MEDICARE, OTHER ==
[~2019-04-20] VITALS: Ht 165.1 cm; Wt 87.3 kg
[2019-04-20 06:44] LABS: BASOPHILS 0.4 % (0-2); HEMATOCRIT 37.4 % (42.0-54.0); HEMOGLOBIN 12.3 g/dL (13.5-17.5); LYMPHOCYTES 24.5 % (15-50); MCH 28.9 pg (26.0-34.0); MCHC 32.9 g/dL (31.0-37.0); MEAN PLATELET VOLUME 9.8 fL (7.4-10.4); MONOCYTES 14.5 % (2-11); NEUTROPHILS 58.6 % (40-80); RBC 4.25 10x6/uL (4.20-6.10); RDW 14.1 % (11.5-14.5); WBC 2.5 10x3/uL (4.8-10.8)
[2019-04-20 06:58] LABS: PLATELET COUNT 46 10x3/uL (130-400)
[2019-04-20 07:10] VITALS: BP 115/64; Ht 165.1 cm; Wt 87.3 kg
[2019-04-20 07:12] LABS: ALKALINE PHOSPHATASE 219 U/L (46-116); ALT (SGPT) 35 U/L (10-68); BILIRUBIN - DIRECT 0.45 mg/dL (0.00-0.30); BILIRUBIN - TOTAL 1.03 mg/dL (0.2-1.3); CALC OSMOLALITY 282 mosm/kg (275-300); CALCIUM 8.6 mg/dL (8.5-10.1); CARBON DIOXIDE 32.5 mmol/L (21.0-32.0); CHLORIDE - SERUM 103 mmol/L (98-107); POTASSIUM - SERUM 4.3 mmol/L (3.5-5.1); PROTEIN - SERUM 6.7 g/dL (6.4-8.2); SODIUM 138 mmol/L (136-145); UREA NITROGEN 12 mg/dL (7-18); eGFR NON AFRICAN AMERICAN 79 mL/min (90-120)
[2019-04-20 07:14] LABS: GLUCOSE 220 mg/dL (74-106)
[2019-04-20 07:17] LABS: APTT 31.3 SECONDS (22.8-39.4); INR 1.05 (0.85-1.17); PROTIME 13.6 SECONDS (11.6-15.0)
--- NOTE | 2019-04-20 10:00 | NUR ---
1000-ULTRASOUND TO ROOM. VSS. DENIES PAIN. DRESSING TO ABD CDI
--- NOTE | 2019-04-20 10:16 | NUR ---
1012-TRAY TO ROOM
--- NOTE | 2019-04-20 10:38 | NUR ---
1030-DISCHARGE CRITERIA MET.REMOVED IV WITH CATH INTACT,DISPOSED INTO SHARPS,COVERED SITE WITH GUAZE,SECURED WITH SHARPS.REVIEWED POST OPERATIVE INSTRUCTIONS. VERBALIZED UNDERSTANDING.
--- NOTE | 2019-04-20 10:39 | NUR ---
1035-ESCORTED OUT VIA W/C WITH SPOUSE AWIAITING TO DRIVE HOME
== END 2019-04-20 10:35 | disposition home or self-care (01) ==
LOC: D.SP 06:20 → D.LAB 06:20 → D.US 08:00 → D.CT 09:00 → D.SP 10:35
PROVIDERS: Radiology Diagnostic Radiology; ATTEND Internal Medicine Gastroenterology
DX: K74.60 Unspecified cirrhosis of liver (principal); R18.8 Other ascites

== ENCOUNTER 2019-04-28 07:55 | Outpatient (CLI) | payer MEDICARE, OTHER ==
[~2019-04-28] VITALS: Ht 165.1 cm; Wt 85.0 kg
[2019-04-28 08:14] LABS: BASOPHILS 0.2 % (0-2); EOSINOPHILS 2.1 % (0-7); HEMATOCRIT 38.9 % (42.0-54.0); HEMOGLOBIN 12.9 g/dL (13.5-17.5); IMMATURE GRANULOCYTES 0.2 % (0-5); LYMPHOCYTES 15.6 % (15-50); MCH 29.2 pg (26.0-34.0); MCHC 33.2 g/dL (31.0-37.0); MEAN PLATELET VOLUME 9.4 fL (7.4-10.4); MONOCYTES 10.2 % (2-11); NEUTROPHILS 71.7 % (40-80); RBC 4.42 10x6/uL (4.20-6.10); RDW 14.2 % (11.5-14.5); WBC 4.2 10x3/uL (4.8-10.8)
[2019-04-28 08:15] LABS: PLATELET COUNT 56 10x3/uL (130-400)
[2019-04-28 08:28] LABS: ALBUMIN 3.3 g/dL (3.4-5.0); ALKALINE PHOSPHATASE 258 U/L (46-116); ALT (SGPT) 47 U/L (10-68); BILIRUBIN - TOTAL 3.69 mg/dL (0.2-1.3); CALC OSMOLALITY 277 mosm/kg (275-300); CALCIUM 8.3 mg/dL (8.5-10.1); CARBON DIOXIDE 30.9 mmol/L (21.0-32.0); CHLORIDE - SERUM 103 mmol/L (98-107); POTASSIUM - SERUM 4.3 mmol/L (3.5-5.1); SODIUM 138 mmol/L (136-145); UREA NITROGEN 15 mg/dL (7-18); eGFR NON AFRICAN AMERICAN 79 mL/min (90-120)
[2019-04-28 08:29] LABS: GLUCOSE 110 mg/dL (74-106)
[2019-04-28 08:31] LABS: INR 1.27 (0.85-1.17); PROTIME 15.8 SECONDS (11.6-15.0)
[2019-04-28 08:45] LABS: PLATELET ESTIMATE DECREASED
[2019-04-28] MEDS ORDERED: XIFAXAN550 MG PO (10:05)
[2019-04-28 10:07] VITALS: Ht 165.1 cm; Wt 85.0 kg
[2019-04-28 13:20] LABS: PROTEIN - BODY FLUID 1.2 G/DL
--- NOTE | 2019-04-28 14:06 | NUR ---
1245 PT ARRIVED TO ROOM SLEEPY BUT ARROUSES WITH VERBAL STIMULI. DRESSING CLEAN DRY AND INTACT. IV FLUIDS SLOW
[2019-04-28 14:23] LABS: MACROPHAGES BF 14 %; MESOTHELIALS BF 3 %; NEUT - BF 8 %
[2019-04-28 15:19] LABS: HEMATOCRIT 33.4 % (42.0-54.0)
--- NOTE | 2019-04-28 18:15 | NUR ---
1815 LAB HERE TO DRAW BLOOD
[2019-04-28 18:20] LABS: HEMATOCRIT 33.5 % (42.0-54.0)
--- NOTE | 2019-04-28 18:25 | NUR ---
1824 DR BLANCO NOTIFIED OF H AND H AND ORDERS GIVEN TO D/C HOME. PT GETTING DRESSED AND WC TO CAR
== END 2019-04-28 18:30 | disposition home or self-care (01) ==
LOC: D.SP 07:55 → D.LAB 10:30 → D.SP 10:30 → D.CT 11:00 → D.SP 18:30
PROVIDERS: Radiology Vascular & Interventional Radiology; ATTEND Internal Medicine Gastroenterology
DX: R76.0 Raised antibody titer (principal); R94.5 Abnormal results of liver function studies; K74.0 Hepatic fibrosis

== ENCOUNTER 2019-05-02 05:49 | Day surgery (SDC) | payer MEDICARE, OTHER ==
[~2019-05-02] VITALS: Ht 165.1 cm; Wt 85.5 kg
[~2019-05-02 05:49] MED LIST changes: +XIFAXAN550 MG PO
[2019-05-02 06:24] VITALS: Ht 165.1 cm; Wt 85.5 kg
[2019-05-02 06:26] LABS: INR 1.19 (0.85-1.17)
[2019-05-02 06:33] LABS: ALKALINE PHOSPHATASE 260 U/L (30-120); ALT (SGPT) 33 U/L (10-68); BILIRUBIN - TOTAL 1.25 mg/dL (0.2-1.3); CALC OSMOLALITY 278 mosm/kg (275-300); CALCIUM 8.1 mg/dL (8.5-10.1); CARBON DIOXIDE 27.8 mmol/L (21.0-32.0); CHLORIDE - SERUM 104 mmol/L (98-107); GLUCOSE 91 mg/dL (74-106); POTASSIUM - SERUM 3.7 mmol/L (3.5-5.1); PROTEIN - SERUM 6.4 g/dL (6.4-8.2); SODIUM 140 mmol/L (136-145); UREA NITROGEN 13 mg/dL (7-18); eGFR NON AFRICAN AMERICAN 79 mL/min (90-120)
[2019-05-02 07:13] LABS: HEMATOCRIT 36.8 % (42.0-54.0); HEMOGLOBIN 12.1 g/dL (13.5-17.5); MCH 28.8 pg (26.0-34.0); MCHC 32.9 g/dL (31.0-37.0); MCV 87.6 fL (80.0-100.0); MEAN PLATELET VOLUME 10.3 fL (7.4-10.4); PLATELET COUNT 66 10x3/uL (130-400); RDW 14.7 % (11.5-14.5)
--- NOTE | 2019-05-02 09:47 | NUR ---
0932 IV DC'D. CATHETER TIP INTACT. PRESSURE HELD UNTIL BLEEDING STOPPED. COBAN DRESSING APPLIED.
[2019-05-02 10:32] LABS: EOSINOPHILS 2 % (0-7); LYMPHOCYTES 15 % (15-50); MONOCYTES 9 % (2-11); NEUTROPHILS 72 % (40-80); PLATELET ESTIMATE DECREASED
[2019-05-02 10:33] LABS: ANISOCYTOSIS OCC
--- NOTE | 2019-05-03 11:34 | OP ---
PATIENT NAME: KOLE BRANNON MEDICAL RECORD: [id number] :50 LOCATION:[facility] ADMISSION DATE: SURGEON: POONAM PACE DO DATE OF OPERATION: 05/02/2019 PROCEDURE: EGD with variceal band ligation. INDICATIONS FOR PROCEDURE: The patient's last upper endoscopy was performed on 10/25/2018 at which point no bands were needed for esophageal varices. SCOPE: Olympus video gastroscope. MEDICATIONS: Propofol 250 mg IV per anesthesia. ESTIMATED BLOOD LOSS: Minimal. COMPLICATIONS: None. FINDINGS: Informed consent was given. The patient was made comfortable with the above medication. After reaching an adequate level of sedation by slow IV push, the patient was placed on his left side. The endoscope was advanced under direct visualization through the mouth to the second portion of the duodenum. In the proximal to mid esophagus as well as the distal esophagus, there were grade II to grade III esophageal varices without bleeding stigmata. There were multiple areas of previous banding sites visualized. Three bands were placed on today's examination over the largest columns starting with the most distal first. The maneuver was successful. The endoscope was advanced down to the GE junction where some LA class B reflux-induced esophagitis was present. It was advanced into the stomach and retroflexed to view the cardia and fundus. Appearances were normal without obvious gastric varices present. In the stomach, there was diffuse portal hypertensive gastropathy in qegvwftf-oe-cdmscn degree. There was no active bleeding. In the antrum and prepyloric regions of the stomach, there were reactive nodules, which have been previously identified. One nodule at a slightly ulcerated tip. There was no active bleeding. No biopsies were taken today as these have been biopsied in the past and have been found to be benign. The endoscope was advanced beyond the pylorus into the duodenum where there was some evidence of portal hypertensive duodenopathy of mild severity. The endoscope was then withdrawn from the patient. The patient tolerated the procedure well and there were no complications. IMPRESSIONS: 1. Grade II to grade III esophageal varices in the proximal to mid esophagus and distal esophagus. Three bands were placed on today's examination. 2. LA class B reflux-induced esophagitis. 3. Moderate to severe portal hypertensive gastropathy and duodenopathy. 4. Reactive nodules in the antrum. These have been biopsied in the past and has been found to be benign. PLAN AND RECOMMENDATIONS: 1. Discharge home when recovery parameters are met. 2. Low sodium diet. 3. Continue current medications including lactulose and Xifaxan. 4. The patient will need a repeat EGD in approximately 4-6 weeks to repeat banding as indicated. OPERATIVE REPORT [id number] MARLEENMARQUISEMichelleKOLE MIRZA TRANSINT:[id number] Voice Confirmation ID: [id number] DOCUMENT ID: [id number] POONAM PACE DO at 1134 CC: [id number] DICTATION DATE: 05/02/19 0836 WORKING SUPERVISOR: 05/02/19 0943 [facility] 05/02/19 [address] [place] [address]
== END 2019-05-02 09:41 | disposition home or self-care (01) ==
LOC: D.OPS 05:49
PROVIDERS: Anesthesiology; ATTEND Internal Medicine Gastroenterology
DX: K74.60 Unspecified cirrhosis of liver (principal); I85.10 Secondary esophageal varices without bleeding; K21.0 Gastro-esophageal reflux disease with esophagitis; K76.6 Portal hypertension; K31.89 Other diseases of stomach and duodenum; R19.7 Diarrhea, unspecified; E11.9 Type 2 diabetes mellitus without complications; Z79.84 Long term (current) use of oral hypoglycemic drugs

== ENCOUNTER 2019-05-27 05:41 | Outpatient (CLI) | payer MEDICARE, OTHER ==
[~2019-05-27] VITALS: Ht 165.1 cm; Wt 85.9 kg
[2019-05-27] VITALS (12 sets, daily range): BP systolic 100–117; BP diastolic 48–69; Ht 165.1 cm; Wt 85.9 kg
--- NOTE | ~2019-05-27 | HEMODYNAMI ---
PATIENT:KOLE BRANNON MEDICAL RECORD: [id number] : 50 [id number] ADMISSION DATE: 05/27/19 Generatedon:05/27/20199:36 Patient name: KOLE BRANNON Patient #: [id number] SSN: : 1950 Date of study: 05/27/2019 Page: Of Hemodynamic Procedure Report Patient Data Patient Demographics Procedure consent was obtained First Name: KOLE Gender: Male Last Name: CLOVIS : 1950 [facility] Initial: HERMES Age: 68 year(s) Patient #: [id number] Race: Additional ID: [id number] Contact details [address]: [address] [place] [address] [place] State: [place] City: [place] Zip code: [address] Past Medical History Allergies: No known allergies Admission Admission Data Admission Date: 05/27/2019 Admission Time: 5:41 Procedure Procedure Types Cath Procedure Peripheral Cath Diagnostic Procedure Abd/Extremity Visceral/Mesenteric Mesenteric Arteriogram (Abd Artery) Procedure Description Procedure Date Procedure Date: 05/27/2019 Procedure Start Time: 8:31 Procedure End Time: 9:36 Procedure Staff Name Function Aaron Vasquez MD Ordering physician Andrew Villeda MD Performing Physician LXEUS AGRAWAL RT Monitor Babak Morales RT Scrub Sandy Stauffer RN Nurse Procedure Data Cath Procedure Fluoroscopy Diagnostic fluoroscopy Total fluoroscopy Time: time: 12.9 min 12.9 min Diagnostic fluoroscopy Total fluoroscopy dose: 988 dose: 988 mGy mGy Contrast Material Contrast Material Type Amount (ml) Isovue 300 85 Entry Location Entry Primary Successful Side Size Upsize Upsize Entry Closure Succ essful Closure Location (Fr) 1 (Fr) 2 (Fr) Remarks Device Remarks Femoral Right 5 Fr Angio-VIP artery 6Fr Diagnostic catheters Device Type Used For End Catheter Placement Merit Impress 5Fr SIM 1 Catheter ([id number]) Procedure Medications Medication Administration Route Dosage Heparin Flush Bag added to field 3 bags (1000units/500ml NS) Lidocaine 1% added to field 20 Versed I.V. 1 mg Fentanyl I.V. 50 mcg Versed I.V. 1 mg Fentanyl I.V. 50 mcg Fentanyl I.V. 50 mcg Fentanyl I.V. 50 mcg Hemodynamics Rest Heart Rate: 68 (bpm) Snapshots Pre Cath Intra NCS Post Cath Vital Signs Time Heart Resp SPO2 etCO2 NIBP (mmHg) Rhythm Pain Sedation Rate (ipm) (%) (mmHg) Status Level (bpm) 8:33:43 71 22 100 39.1 151/81(109) NSR 0 (11) 10(A) , No pain 8:37:59 66 15 100 40.7 122/71(92) NSR 0 (11) 10(A) , No pain 8:42:17 69 15 100 43 117/68(88) NSR 0 (11) 8(A) , No pain 8:46:33 69 15 100 42.2 112/64(89) NSR 0 (11) 8(A) , No pain 8:50:47 70 14 99 43.8 120/66(93) NSR 0 (11) 8(A) , No pain 8:55:03 67 14 100 43.8 118/68(91) NSR 0 (11) 8(A) , No pain 8:59:15 65 13 100 28.4 107/62(80) NSR 0 (11) 8(A) , No pain 9:03:25 65 13 100 39.9 118/69(92) NSR 0 (11) 8(A) , No pain 9:07:39 64 13 100 41.5 119/69(90) NSR 0 (11) 8(A) , No pain 9:11:55 65 12 100 42.3 116/67(86) NSR 0 (11) 8(A) , No pain 9:16:09 64 12 99 41.5 109/67(91) NSR 0 (11) 8(A) , No pain 9:20:17 66 14 98 41.5 127/78(115) NSR 0 (11) 8(A) , No pain 9:24:31 69 14 100 42.3 123/80(104) NSR 0 (11) 8(A) , No pain 9:28:47 66 13 98 43 126/68(92) NSR 0 (11) 8(A) , No pain 9:33:00 67 12 99 44.6 111/69(95) NSR 0 (11) 8(A) , No pain Medications Time Medication Route Dose Verified Delivered Reason Notes Effec tiveness by by 8:33:45 Heparin Flush added 3 Andrew Morales used for Bag to bags Ronal Villeda procedure (1000units/500ml field MD VELASQUEZ NS) 8:33:58 Lidocaine 1% added 20ml Andrew Morales for local to vial Ronal Villeda anesthetic field MD VELASQUEZ 8:34:12 Versed I.V. 1 mg Andrew Delgado for Ronal Eh RN sedation 8:34:24 Fentanyl I.V. 50 Andrew Sandy for mcg Ronal Eh RN sedation 8:38:44 Versed I.V. 1 mg Andrew Delgado for Ronal Eh RN sedation 8:38:50 Fentanyl I.V. 50 Andrew Sandy for mcg Ronal Eh RN sedation 9:00:26 Fentanyl I.V. 50 Andrew Sandy for mcg Ronal Eh RN sedation 9:10:58 Fentanyl I.V. 50 Andrew Sandy for mcg Ronal Eh RN sedation Procedure Log Time Note 8:04:58 Babak Morales RT (R) (CV) sent for patient. Start room use. 8:05:00 Time tracking: Regular hours (M-F 7:00 - 5:00) 8:05:03 Plan of Care:Hemodynamics will remain stable., Cardiac rhythm will remain stable., Comfort level will be maintained., Respiratory function will remain adequate., Patient/ family verbilizes understanding of procedure., Procedure tolerated without complication., Recovers from procedure without complications.. 8:05:09 Patient received from Outpatients to IR Alert and oriented. Tansferred to table in Supine position. 8:05:11 Signed procedure consent form obtained from patient. 8:05:13 Warm blankets applied, and juan hugger turned on for patient comfort. 8:05:13 Correct patient and procedure confirmed by team. 8:05:13 ECG and BP/O2 sat monitors applied to patient. 8:05:15 8:05:20 H&P Date Dictated: 05/27/2019 H&P Addendum completed by physician on day of procedure. (MUST COMPLETE FOR ALL OUTPATIENTS). 8:05:22 Pre-procedure instructions explained to patient. 8:05:22 Pre-op teaching completed and patient verbalized understanding. 8:05:29 Patient NPO since Midnight. 8:05:39 Patient allergic to No known allergies 8:05:42 Is the patient allergic to Iodine/contrast media? No. 8:05:46 Is patient on blood thinner?No 8:05:47 Patient diabetic? Yes. 8:05:48 If diabetic: On Metformin? Yes 8:05:52 If on Metformin: Last Dose? 05/26/2019 8:05:55 8:06:01 ----Pre-sedation anethsthesia assessment.---- 8:06:05 Previous problem with sedation/anesthesia? No ? 8:06:06 Snore? Yes 8:06:08 Sleep apnea? No 8:06:09 Deviated septum? No 8:06:10 Opens mouth fully? Yes 8:06:12 Sticks out tongue? Yes 8:06:14 Airway obstruction? No ? 8:06:19 Dentures? Yes out. 8:06:22 8:08:20 IV patent on arrival in left hand with D5/.45%NaCl at KVO. 8:08:33 Right groin area was prepped with chlora-prep and draped in sterile fashion 8:08:35 8:08:41 Use device set IR Diagnostic 8:08:42 Tegaderm 4 x 4 ([id number]) opened to sterile field. 8:08:43 Sterile Angiographic Pack opened to sterile field. 8:08:44 Bag Decanter (2002S) opened to sterile field. 8:08:44 ACIST Manifold (84540) opened to sterile field. 8:08:45 ACIST Hand Control (39897) opened to sterile field. 8:08:46 ACIST Syringe (64528) opened to sterile field. 8:09:15 TUBING Contrast Injection High Pressure ([id number]) opened to sterile field. 8:09:15 BENTSON 145cm wire (K21495) opened to sterile field. 8:09:15 SHEATH 5FR [place] (SCN630) opened to sterile field. 8:09:16 MICROPUNCTURE 4FR Cook (K70334) opened to sterile field. 8:18:50 STOPCOCK 3-Way Large Bore ([id number]) opened to sterile field. 8:18:54 8:28:43 A Merit Impress 5Fr SIM 1 Catheter ([id number]) was advanced over the wire and used for . 8:28:45 Physician arrived 8:29:09 --------ALL STOP TIME OUT------ 8:29:10 Final Timeout: patient, procedure, and site verified with staff and physician. All members of the team are in agreement. 8:29:43 Right groin site verified by team. 8:29:51 2) 60-89 Mildly reduced kidney function, and other findings (as for stage 1) point to kidney disease. 8:30:52 Procedure started. 8:30:53 Full Disclosure recording started 8:31:01 Local anesthetic to right femoral artery with Lidocaine 1% by Andrew Villeda MD.INITIAL ACCESS ONLY 8:32:24 Baseline sample Acquired. 8:32:28 Vital chart was started 8:33:02 Arterial access obtained using ultrasound guidance. 8:33:45 Heparin Flush Bag (1000units/500ml NS) 3 bags added to field was administered by Andrew Villeda MD; used for procedure; Verbal order read back and verified. 8:33:58 Lidocaine 1% 20ml vial added to field was administered by Andrew Villeda MD; for local anesthetic; Verbal order read back and verified. 8:34:12 Versed 1 mg I.V. was administered by Sandy Stauffer RN; for sedation; Verbal order read back and verified. 8:34:16 Access obtained with 4Fr micropunture. 8:34:24 Fentanyl 50 mcg I.V. was administered by Sandy Stauffer RN; for sedation; Verbal order read back and verified. 8:34:24 A 5 Fr sheath was inserted into the Right Femoral artery 8:34:30 Bentson wire advanced. 8:38:44 Versed 1 mg I.V. was administered by Sandy Stauffer RN; for sedation; Verbal order read back and verified. 8:38:48 TRANSEND STEERABLE wire ([id number]) opened to sterile field. 8:38:49 RENEGADE HI-SHAYY microcatheter ([id number]) opened to sterile field. 8:38:49 COPILOT Valve Control (2951751) opened to sterile field. 8:38:50 Fentanyl 50 mcg I.V. was administered by Sandy Stauffer RN; for sedation; Verbal order read back and verified. 8:47:12 GLIDE WIRE GT DOUBLE ANGLE .018 ([id number]) opened to sterile field. 8:53:28 EMBOSHERE 300-500UM (S420GH) opened to sterile field. 9:00:26 Fentanyl 50 mcg I.V. was administered by Sandy Stauffer RN; for sedation; Verbal order read back and verified. 9:00:27 EMBOSHERE 300-500UM (S420GH) opened to sterile field. 9:10:58 Fentanyl 50 mcg I.V. was administered by Sandy Stauffer RN; for sedation; Verbal order read back and verified. 9:18:59 ANGIOSEAL-VIP PLUS 6 FR opened to sterile field. 9:19:21 Sheath removed intact; hemostasis achieved with Angio-VIP 6Fr to the Right Femoral artery. 9:25:01 Procedure ended.(Physican Out) 9:25:18 Fluoroscopy time 12.90 minutes. 9:25:21 Fluoroscopy dose: 988 mGy 9:25:21 Flurop Dose total: 988 9:25:28 Contrast amount:Isovue 300 85ml. 9:25:39 Post right femoral artery:stable, clean and dry 9:25:43 Post procedure instruction explained to patient.Patient verbalizes understanding. 9:25:45 Procedure and supply charges have been captured, reviewed, submitted and are correct. 9:36:17 Vital chart was stopped 9:36:21 Procedure ended. 9:36:21 Full Disclosure recording stopped 9:36:33 Patient transfered to [facility] with Bed. 9:36:35 End room use (Document Last) Device Usage Item Name Manufacture Quantity Catalog Hospital Part Current Minim al Lot# / Number Charge Number Stock Stock Serial# Code Tegaderm 4 x 3M 1 1626W 167877 236895 [id number] 5 4 (1626W) Sterile Cardinal 1 [id number] 680947 628987 5 Angiographic Health Pack Bag Decanter Microtek 1 485473 06857 238890 5 () Medical Inc. ACIST Acist 1 03143 422323 379784 514576 5 Manifold Medical (58623) Systems Inc ACIST Hand Acist 1 83893 618997 948359 563141 5 Control Medical (50352) Systems Inc ACIST Syringe Acist 1 78252 374947 192548 007891 20 (63116) Medical Systems Inc TUBING Merit 1 [id number] 356688 282526 589192 5 Contrast Medical Injection High Pressure ([id number]) BENTSON 145cm Quantum Group Medical 1 J93547 194813 022579 5 wire (H57965) SHEATH 5FR Terumo 1 FWO255 406263 377281 887992 5 Ranchester (DQR866) MICROPUNCTURE [employer] 1 P23053 049548 331248 259086 5 4FR Quantum Group (J97447) STOPCO Cook Medical 1 T17032 899250 5654 506928 5 [id number] 3-Way Large Bore (H47693) Merit Impress Merit 1 [id number] 422827 242037 521876 5 5Fr SIM 1 Medical Catheter ([id number]) TRANSEND [place] 1 [id number] 413516 425191 5 [id number] STEERABLE Scientific wire ([id number]) RENEGADE [place] 1 [id number] 034481 836503 5 HI-SHAYY Scientific microcatheter ([id number]) COPILOT Valve Curry 1 0142408 392097 022503 768034 5 Control Vascular (4709950) GLIDE WIRE GT Terumo 1 [id number] 191059 594554 5 DOUBLE ANGLE .018 (RG*[id number]) EMBOSHERE Merit 2 S420GH 458785 768674 936975 1 [id number] 300-500UM Medical [id number] ([id number]) ANGIOSEAL-VIP [facility] [place] 1 849129 630384 912914 783519 5 PLUS 6 FR Signature Audit [place] Stage Time Signature Unsigned Intra-Procedure 05/27/2019 LEXUS AGRAWAL RT 9:36:51 AM (R) [facility] [address] [place] [address]
[2019-05-27 06:31] LABS: APTT 31.4 SECONDS (22.8-39.4); BASOPHILS 0.3 % (0-2); EOSINOPHILS 2.1 % (0-7); HEMATOCRIT 36.4 % (42.0-54.0); HEMOGLOBIN 12.1 g/dL (13.5-17.5); LYMPHOCYTES 23.3 % (15-50); MCH 29.1 pg (26.0-34.0); MCHC 33.2 g/dL (31.0-37.0); MCV 87.5 fL (80.0-100.0); MEAN PLATELET VOLUME 9.7 fL (7.4-10.4); MONOCYTES 9.4 % (2-11); NEUTROPHILS 64.9 % (40-80); RBC 4.16 10x6/uL (4.20-6.10); RDW 14.5 % (11.5-14.5); WBC 2.9 10x3/uL (4.8-10.8)
[2019-05-27 06:35] LABS: INR 1.3 (0.85-1.17); PROTIME 16.1 SECONDS (11.6-15.0)
[2019-05-27 06:42] LABS: ALBUMIN 3.1 g/dL (3.4-5.0); ALKALINE PHOSPHATASE 154 U/L (30-120); ALT (SGPT) 33 U/L (10-68); BILIRUBIN - DIRECT 0.62 mg/dL (0.00-0.30); BILIRUBIN - INDIRECT 1.25 mg/dL (0.00-1.00); BILIRUBIN - TOTAL 1.87 mg/dL (0.2-1.3); CALC OSMOLALITY 280 mosm/kg (275-300); CALCIUM 8.2 mg/dL (8.5-10.1); CARBON DIOXIDE 32.8 mmol/L (21.0-32.0); CHLORIDE - SERUM 105 mmol/L (98-107); GLUCOSE 125 mg/dL (74-106); MAGNESIUM - SERUM 1.8 mg/dL (1.8-2.4); POTASSIUM - SERUM 4.4 mmol/L (3.5-5.1); PROTEIN - SERUM 6.7 g/dL (6.4-8.2); SODIUM 139 mmol/L (136-145); UREA NITROGEN 18 mg/dL (7-18); eGFR NON AFRICAN AMERICAN 79 mL/min (90-120)
[2019-05-27 08:00] LABS: PLATELET COUNT 41 10x3/uL (130-400)
--- NOTE | 2019-05-27 09:45 | NUR ---
RECIVED FROM IR PER BED, RT GROIN DRSG C/D/I. PULSE PALP. ADMIT ASSESSMENT PER RN
--- NOTE | 2019-05-27 16:08 | NUR ---
FAMILY AT SIDE. DENIES NEEDS
--- NOTE | 2019-05-27 20:07 | NUR ---
INITIAL ROUNDS COMPLETED AT 1915 HRS. PT DENIED ANY DISCOMFORT. ASSESSMENT COMPLETED AT 1940 HRS. PT SLIGHTY DROWSY. DENIES ANY DISCOMFORT. IV TO L HAND WITH D5NS AT 30CC/HR. IV PATENT. MORPHINE TELESALES REPRESENTATIVE WITH 2MG Q 10MINUTES WITH 30MG Q4HR LO. LUNGS DIMINISHED IN BASES BILAT. R GROIN DRESSING CLEAN, DRY AND INTACT. TALBOT. PALPABLE PEDAL PULSES. AT BEDSIDE. SR UP X2, CALL LIGHT WITHIN REACH.
--- NOTE | 2019-05-27 21:58 | NUR ---
PM MEDS GIVEN. LPCQ513. 10 UNITS REG INSULIN GIVEN SUB-Q TO UPPER R ARM. AT BEDSIDE. PM SNACK SERVED. SR UP X2,CALL LIGHT WITHIN REACH.
--- NOTE | 2019-05-28 00:08 | NUR ---
PT SITTING UP IN A CHAIR. NO DISTRESS NOTED. AT BEDSIDE.
[2019-05-28 00:30] VITALS: BP 114/53
--- NOTE | 2019-05-28 02:14 | NUR ---
PT RESTING WITH EYES CLOSED. RESP EVEN AND REGULAR. SR UP X2, CALL LIGHT WITHIN REACH.
--- NOTE | 2019-05-28 03:48 | NUR ---
ACCIDENTALLY PULLED IV OUT WITH CATHETER INTACT. ATTEMPTED IV X3 WITHOUT SUCCESS.
--- NOTE | 2019-05-28 04:27 | NUR ---
IV STARTED #20 TO LFA WITH ATTEMPT X2 BY Viviana CASTILLO RN, D5NS INFUSING AT 30CC/HR.
[2019-05-28 04:30] VITALS: BP 121/57
--- NOTE | 2019-05-28 06:21 | NUR ---
VSS THROUGHOUT NIGHT. PT STATES MORPHINE RN RECRUITMENT CONTROLLED PAIN. NEEDS MET; WILL CONTINUE TO MONITOR.
[2019-05-28 07:51] LABS: HEMATOCRIT 35.8 % (42.0-54.0); HEMOGLOBIN 11.9 g/dL (13.5-17.5); MCHC 33.2 g/dL (31.0-37.0); MCV 87.1 fL (80.0-100.0); MEAN PLATELET VOLUME 11.9 fL (7.4-10.4); PLATELET COUNT 67 10x3/uL (130-400); RBC 4.11 10x6/uL (4.20-6.10); WBC 20.3 10x3/uL (4.8-10.8)
[2019-05-28 08:00] VITALS: BP 120/60
[2019-05-28 08:23] LABS: LYMPHOCYTES 4 % (15-50); MONOCYTES 4 % (2-11); NEUTROPHILS 85 % (40-80); PLATELET ESTIMATE DECREASED
--- NOTE | 2019-05-28 15:15 | NUR ---
AMBULATES HALLWAY WITH RN ASSIST. GAIT STEADY. CORAZON PAIN, DIZZINESS OR SOB. WILL MONITOR.
--- NOTE | 2019-05-28 16:46 | NUR ---
IV AND TELEMETRY DCD. DC PLANS GIVEN. UNDERSTANDING VOICED. ESCORTED TO CAR BY W/C.
== END 2019-05-28 16:46 | disposition home or self-care (01) ==
LOC: D.RAD 05:41 → D.M2 09:56 → D.RAD 05-28 16:46
PROVIDERS: ATTEND Radiology Diagnostic Radiology
DX: D69.6 Thrombocytopenia, unspecified (principal); E11.9 Type 2 diabetes mellitus without complications; I10 Essential (primary) hypertension; Z79.84 Long term (current) use of oral hypoglycemic drugs; Z72.0 Tobacco use

== ENCOUNTER 2019-06-09 04:53 | Emergency (ER) | payer MEDICARE, OTHER ==
[~2019-06-09] VITALS: Ht 165.1 cm; Wt 88.2 kg
[2019-06-09] MEDS ORDERED: MONODOX100 MG PO (05:03)
[2019-06-09 05:04] VITALS: Ht 165.1 cm; Wt 88.2 kg
[2019-06-09 05:29] LABS: BASOPHILS 0.3 % (0-2); EOSINOPHILS 1.6 % (0-7); HEMOGLOBIN 11.6 g/dL (13.5-17.5); IMMATURE GRANULOCYTES 1.1 % (0-5); MCH 28.8 pg (26.0-34.0); MCHC 32.2 g/dL (31.0-37.0); MCV 89.3 fL (80.0-100.0); MEAN PLATELET VOLUME 9.2 fL (7.4-10.4); MONOCYTES 10.8 % (2-11); NEUTROPHILS 74.2 % (40-80); RBC 4.03 10x6/uL (4.20-6.10); RDW 15.2 % (11.5-14.5); WBC 19.8 10x3/uL (4.8-10.8)
[2019-06-09 05:30] LABS: CALC OSMOLALITY 276 mosm/kg (275-300); CALCIUM 8.2 mg/dL (8.5-10.1); CARBON DIOXIDE 25.8 mmol/L (21.0-32.0); CHLORIDE - SERUM 101 mmol/L (98-107); CREATININE - SERUM 0.9 mg/dL (0.6-1.3); POTASSIUM - SERUM 4.7 mmol/L (3.5-5.1); SODIUM 135 mmol/L (136-145); UREA NITROGEN 16 mg/dL (7-18); eGFR NON AFRICAN AMERICAN 89 mL/min (90-120)
[2019-06-09 05:31] LABS: GLUCOSE 205 mg/dL (74-106); PLATELET COUNT 442 10x3/uL (130-400)
[2019-06-09 05:35] LABS: INR 1.12 (0.85-1.17); PROTIME 14.4 SECONDS (11.6-15.0)
[2019-06-09 05:36] LABS: APTT 31.3 SECONDS (22.8-39.4)
[2019-06-09 05:43] LABS: ALBUMIN 2.4 g/dL (3.4-5.0); ALKALINE PHOSPHATASE 292 U/L (30-120); ALT (SGPT) 33 U/L (10-68); BILIRUBIN - TOTAL 1.56 mg/dL (0.2-1.3); CKMB 0.2 U/L (0.0-3.6); CREATINE KINASE 56 UL (21-232); PROTEIN - SERUM 6.2 g/dL (6.4-8.2); THYROID STIMULATING HORMONE 2.38 uIU/mL (0.36-3.74); TROPONIN-I < 0.017 ng/mL (0.000-0.060)
[2019-06-09 07:00] VITALS: BP 134/69
== END 2019-06-09 07:39 | disposition other institution (70) ==
LOC: D.ER 04:53
PROVIDERS: Family Medicine
DX: R53.1 Weakness (principal); E11.40 Type 2 diabetes mellitus with diabetic neuropathy, unspecified; Z86.73 Personal history of transient ischemic attack (TIA), and cerebral infarction without residual deficits; Z79.84 Long term (current) use of oral hypoglycemic drugs

== ENCOUNTER → 2019-11-16 09:26 | Outpatient (CLI) | payer MEDICARE, OTHER ==
[2019-06-09 05:04] VITALS: BMI 32.3
[~2019-11-16 09:26] MED LIST changes: +MONODOX100 MG PO
[2019-11-16 09:51] LABS: BASOPHILS 1.1 % (0-2); EOSINOPHILS 2.6 % (0-7); HEMATOCRIT 38.8 % (42.0-54.0); HEMOGLOBIN 12.3 g/dL (13.5-17.5); IMMATURE GRANULOCYTES 0.3 % (0-5); LYMPHOCYTES 29.4 % (15-50); MCH 25.9 pg (26.0-34.0); MCHC 31.7 g/dL (31.0-37.0); MCV 81.9 fL (80.0-100.0); MEAN PLATELET VOLUME 8.9 fL (7.4-10.4); MONOCYTES 12.5 % (2-11); NEUTROPHILS 54.1 % (40-80); RBC 4.74 10x6/uL (4.20-6.10); RDW 16.2 % (11.5-14.5); WBC 7.6 10x3/uL (4.8-10.8)
[2019-11-16 09:52] LABS: PLATELET COUNT 264 10x3/uL (130-400)
[2019-11-16 10:01] LABS: INR 0.96 (0.85-1.17); PROTIME 12.7 SECONDS (11.6-15.0)
[2019-11-16 10:08] LABS: ALBUMIN 3.4 g/dL (3.4-5.0); ANION GAP 8.7 mmol/L (8-16); BILIRUBIN - DIRECT 0.25 mg/dL (0.00-0.30); BILIRUBIN - INDIRECT 0.44 mg/dL (0.00-1.00); BILIRUBIN - TOTAL 0.69 mg/dL (0.2-1.3); CALCIUM 9.4 mg/dL (8.5-10.1); CARBON DIOXIDE 29.6 mmol/L (21.0-32.0); CREATININE - SERUM 1.3 mg/dL (0.6-1.3); POTASSIUM - SERUM 5.3 mmol/L (3.5-5.1); PROTEIN - SERUM 7.4 g/dL (6.4-8.2)
== END | disposition home or self-care (01) ==
LOC: D.LAB 09:26 → D.US 10:00
PROVIDERS: ATTEND Internal Medicine Gastroenterology
DX: K74.69 Other cirrhosis of liver (principal)

== ENCOUNTER 2020-07-08 17:44 | Emergency (ER) | payer MEDICARE, OTHER ==
[~2020-07-08] VITALS: Ht 165.1 cm; Wt 90.9 kg
[~2020-07-08 17:44] MED LIST changes: +NOVOLIN 70/30 110 ML SC
[2020-07-08 17:51] VITALS: Ht 165.1 cm; Wt 90.9 kg
[2020-07-08 18:08] LABS: BASOPHILS 0.2 % (0-2); HEMATOCRIT 35.4 % (42.0-54.0); HEMOGLOBIN 10.3 g/dL (13.5-17.5); IMMATURE GRANULOCYTES 0.3 % (0-5); LYMPHOCYTE ABS# 1.86 10x3/uL (1.32-3.57); LYMPHOCYTES 12.7 % (15-50); MCH 22.5 pg (26.0-34.0); MCHC 29.1 g/dL (31.0-37.0); MCV 77.3 fL (80.0-100.0); MEAN PLATELET VOLUME 9.4 fL (7.4-10.4); MONOCYTES 11.4 % (2-11); NEUTROPHIL ABS# 10.85 10x3/uL (1.78-5.38); NEUTROPHILS 74.4 % (40-80); PLATELET COUNT 284 10x3/uL (130-400); RBC 4.58 10x6/uL (4.20-6.10); RDW 19.7 % (11.5-14.5); WBC 14.6 10x3/uL (4.8-10.8)
[2020-07-08 18:16] LABS: CALC OSMOLALITY 282 mosm/kg (275-300); CALCIUM 8.8 mg/dL (8.5-10.1); CARBON DIOXIDE 27.9 mmol/L (21.0-32.0); CHLORIDE - SERUM 97 mmol/L (98-107); CREATININE - SERUM 1.4 mg/dL (0.6-1.3); GLUCOSE 349 mg/dL (74-106); POTASSIUM - SERUM 4.1 mmol/L (3.5-5.1); SODIUM 133 mmol/L (136-145); UREA NITROGEN 21 mg/dL (7-18); eGFR NON AFRICAN AMERICAN 53 mL/min (90-120)
[2020-07-08 18:25] LABS: ALBUMIN 3.1 g/dL (3.4-5.0); ALKALINE PHOSPHATASE 152 U/L (30-120); ALT (SGPT) 68 U/L (10-68); AMYLASE - SERUM 29 U/L (25-115); BILIRUBIN - TOTAL 0.77 mg/dL (0.2-1.3); LIPASE 93 U/L (73-393)
[2020-07-08 18:26] LABS: TROPONIN-I < 0.017 ng/mL (0.000-0.060)
[2020-07-08 19:19] LABS: BILIRUBIN NEGATIVE (NEGATIVE); KETONE NEGATIVE (NEGATIVE); NITRITE NEGATIVE (NEGATIVE); UROBILINOGEN NORMAL mg/dL (< 2)
[2020-07-08] MEDS ORDERED: MONODOX100 MG PO (19:55)
[2020-07-08 20:15] VITALS: BP 112/72
== END 2020-07-08 20:16 | disposition home or self-care (01) ==
LOC: D.ER 17:44
PROVIDERS: Family Medicine
DX: N50.811 Right testicular pain (principal); N45.1 Epididymitis; E11.9 Type 2 diabetes mellitus without complications; I10 Essential (primary) hypertension; Z72.0 Tobacco use; Z79.4 Long term (current) use of insulin